=== PATIENT | female | born 1955 | race Caucasian/White ===

== ENCOUNTER 2017-02-28 06:58 | Inpatient (IN) | payer MEDICAID, OTHER ==
[~2017-02-28] VITALS: Ht 154.9 cm; Wt 121.6 kg
[~2017-02-28 06:58] MED LIST: AMIO200T2 PO; ASPI-664 PO; CLON-379 PO; LOSA50TA6 PO; METF500T4 PO
[2017-02-28] MEDS ORDERED: SOD CHLORIDE 0.9% 1,000 ML IV STA (07:18)
[2017-02-28] MEDS ORDERED: LIDOCAINE/MYLANTA 40 ML BTL PO ONE (07:30)
[2017-02-28 07:41] VITALS: TEMP 98.3
--- NOTE | 2017-02-28 07:44 | ERD ---
ER Documentation Chief Complaint Date/Time DATE: 02/28/17 TIME: 07:40 Chief Complaint ABD PAIN RADIAITNG TO BACK, ONSET LAST NIGHT, NO N/V/D HPI This 69-year-old female comes in with her for upper abdominal pain described as a burning and sharp pain radiates to her back and began last night. She denies vomiting diarrhea but does state that she had some constipation from time to time. Her last bowel moment was 2 days ago. States that she has been taking Zantac which does relieve the pain. She has had this pain before as well. She does not have any chest pain or shortness of breath. ROS All systems reviewed and are negative except as per history of present illness. Medications Home Meds Active Scripts Clonidine Hcl* (Clonidine Hcl*) 0.1 Mg Tab, 0.2 MG PO BID, #20 Prov:CRISTOPHER DSOUZA MD 10/11/15 Reported Medications Losartan Potassium* (Losartan Potassium*) 50 Mg Tablet, 50 MG PO DAILY, TAB 10/11/15 Aspirin* (Aspirin* EC) 81 Mg Tablet.dr, 81 MG PO DAILY, TAB 10/11/15 Amiodarone Hcl* (Amiodarone Hcl*) 200 Mg Tablet, 200 MG PO DAILY, TAB 10/11/15 Metformin Hcl* (Metformin Hcl*) 500 Mg Tablet, 500 MG PO BID, TAB 10/11/15 Allergies Allergies: Coded Allergies: No Known Allergy (Verified , 05/27/12) PMhx/Soc History of Surgery: No Anesthesia Reaction: No Hx Neurological Disorder: No Hx Respiratory Disorders: No Hx Cardiac Disorders: Yes (htn) Hx Psychiatric Problems: No Hx Miscellaneous Medical Probl: Yes (DM) Hx Alcohol Use: No Hx Substance Use: No Hx Tobacco Use: No Physical Exam Vitals Vital Signs Date Time Temp Pulse Resp B/P Pulse Ox O2 Delivery O2 Flow Rate FiO2 02/28/17 07:41 98.3 71 25 161/76 100 Room Air 02/28/17 07:02 98.0 71 18 212/83 98 Physical Exam Const: [] No distress Head: Atraumatic Eyes: Normal Conjunctiva ENT: Normal External Ears, Nose and Mouth. Neck: Full range of motion..~ No meningismus. Resp: Clear to auscultation bilaterally Cardio: Regular rate and rhythm, no murmurs Abd: Soft, mild to moderate epigastric tenderness without guarding or rebound , non distended. Normal bowel sounds Skin: No petechiae or rashes Back: No midline or flank tenderness Ext: No cyanosis, or edema Neur: Awake and alert and oriented 3, no focal deficits Psych: Normal Mood and Affect Result Diagram: 02/28/17 0730 02/28/17 0730 Results 24 hrs Laboratory Tests Test 02/28/17 07:30 02/28/17 11:46 02/28/17 12:17 White Blood Count 7.810^3/ul Red Blood Count 4.7010^6/ul Hemoglobin 13.0g/dl Hematocrit 41.5% Mean Corpuscular Volume 88.3fl Mean Corpuscular Hemoglobin 27.7pg Mean Corpuscular Hemoglobin Concent 31.3g/dl Red Cell Distribution Width 14.4% Platelet Count 17142^3/UL Mean Platelet Volume fl Neutrophils % 65.0% Band Neutrophils % 2.0% Lymphocytes % 21.0% Monocytes % 9.0% Metamyelocytes % 2.0% Myelocytes % 1.0% Neutrophils # 5.110^3/ul Lymphocytes # 1.610^3/ul Monocytes # 0.710^3/ul Metamyelocytes # 0.2 Myelocytes # 0.1 Differential Comment MANUAL DIFF Giant Platelets FEW Urine Color YELLOW Urine Clarity CLEAR Urine pH 5.5 Urine Specific [place]cano 1.020 Urine Ketones NEGATIVE Urine Nitrite NEGATIVE Urine Bilirubin 1+ Urine Ictotest NEGATIVE Urine Urobilinogen 0.2 E.U./dL Urine Leukocyte Esterase NEGATIVE Urine Hemoglobin NEGATIVE Urine Glucose NEGATIVE% Urine Total Protein NEGATIVE Sodium Level 141mmol/L Potassium Level 4.2mmol/L Chloride Level 102mmol/L Carbon Dioxide Level 24mmol/L Anion Gap 19 Blood Urea Nitrogen 13mg/dl Creatinine 0.83mg/dl Glucose Level 231mg/dl Calcium Level 9.1mg/dl Total Bilirubin 2.3mg/dl Direct Bilirubin 1.50mg/dl Indirect Bilirubin 0.8mg/dl Aspartate Amino Transf (AST/SGOT) 239IU/L Alanine Aminotransferase (ALT/SGPT) 444IU/L Alkaline Phosphatase 199IU/L Total Protein 7.5g/dl Albumin 3.8g/dl Globulin 3.70g/dl Albumin/Globulin Ratio 1.02 Lipase 170U/L Prothrombin Time 13.4Sec Prothrombin Time Ratio 1.0 INR International Normalized Ratio 1.02 Activated Partial Thromboplast Time 23.8Sec Bedside Glucose 178mg/dL Current Medications Medications (Trade) Dose Ordered Sig/Martha Route PRN Reason Start Time Stop Time Status Last Admin Dose Admin Sodium Chloride (NS) 1,000 ml @ 1,000 mls/hr Q1H STAT IV 02/28/17 07:18 02/28/17 08:17 DC 02/28/17 07:51 Miscellaneous Medication (Gi Cocktail (2)) 40 ml ONCE ONCE PO 02/28/17 07:30 02/28/17 07:31 DC 02/28/17 07:51 Morphine Sulfate (morphine) 4 mg ONCE STAT IV 02/28/17 08:16 02/28/17 08:17 DC 02/28/17 08:22 Ondansetron HCl (Zofran Inj) 4 mg ONCE STAT IV 02/28/17 08:24 02/28/17 08:25 DC 02/28/17 08:27 Morphine Sulfate 4 mg 4 mg ONCE STAT IV 02/28/17 09:17 02/28/17 09:19 DC 02/28/17 09:29 Ceftriaxone Sodium 50 ml @ 100 mls/hr ONCE ONCE IVPB 02/28/17 11:00 02/28/17 11:29 DC 02/28/17 11:23 Metronidazole (Flagyl 500 Mg (Pmx)) 100 ml @ 100 mls/hr ONCE ONCE IVPB 02/28/17 11:00 02/28/17 11:59 DC 02/28/17 11:23 Ondansetron HCl (Zofran Inj) 4 mg BRIDGE ORDER PRN IV NAUSEA AND/OR VOMITING 02/28/17 11:30 02/28/17 12:19 DC Acetaminophen 650 mg 650 mg ER BRIDGE PRN PO MILD PAIN/FEVER 02/28/17 11:30 03/01/17 11:29 Sodium Chloride (NS) 1,000 ml @ 100 mls/hr Q10H IV 02/28/17 11:45 IV Flush (NS 3 ml) 3 ml PER PROTOCOL IV 02/28/17 12:00 Ondansetron HCl (Zofran Inj) 4 mg Q6H PRN IV NAUSEA AND/OR VOMITING 02/28/17 12:00 Morphine Sulfate (morphine) 2 mg Q4H PRN IV SEVERE PAIN LEVEL 7-10 02/28/17 12:00 Magnesium Hydroxide (Milk Of Mag) 30 ml DAILY PRN PO CONSTIPATION 02/28/17 12:00 Bisacodyl (Dulcolax) 5 mg DAILY PRN PO CONSTIPATION 02/28/17 12:00 Famotidine (Pepcid Iv) 20 mg Q12 IV 02/28/17 21:00 Hydralazine HCl 10 mg 10 mg Q6H PRN IV SBP>160 02/28/17 12:00 Piperacillin Sod/ Tazobactam Sod (Zosyn 3.375gm/ 100 ml (Pmx)) 100 ml @ 200 mls/hr Q8 IVPB 02/28/17 14:00 Insulin Aspart (Novolog Insulin Pen) NOVOLOG *MILD* ALGORITHM Q4H SC 02/28/17 12:00 Insulin Glargine (Lantus) 12 unit DAILY@20 SC 02/28/17 20:00 Miscellaneous Information (* Miscellaneous Pharmacy Order) HYPOGLYCEMIA PROTOCOL w... ONCE ONCE XX 02/28/17 12:00 02/28/17 12:21 DC Miscellaneous Information (* Miscellaneous Pharmacy Order) Discontinue Glyburide, Glipizide,... ONCE ONCE XX 02/28/17 12:00 02/28/17 12:21 DC Miscellaneous Information (* Miscellaneous Pharmacy Order) Discontinue all previ... ONCE ONCE XX 02/28/17 12:00 02/28/17 12:21 DC Amiodarone HCl (Cordarone) 200 mg DAILY PO 03/01/17 09:00 Aspirin (Halfprin) 81 mg DAILY PO 03/01/17 09:00 Losartan Potassium (Cozaar) 50 mg DAILY PO 03/01/17 09:00 Miscellaneous Information 1 ea NOTE XX 02/28/17 12:30 Glucose (Glutose) 15 gm Q15M PRN PO DECREASED GLUCOSE 02/28/17 12:30 Glucose (Glutose) 22.5 gm Q15M PRN PO DECREASED GLUCOSE 02/28/17 12:30 Dextrose (D50w Syringe) 25 ml Q15M PRN IV DECREASED GLUCOSE 02/28/17 12:30 Dextrose (D50w Syringe) 50 ml Q15M PRN IV DECREASED GLUCOSE 02/28/17 12:30 Glucagon (Glucagen) 1 mg Q15M PRN IM DECREASED GLUCOSE 02/28/17 12:30 Glucose (Glutose) 15 gm Q15M PRN BUCCAL DECREASED GLUCOSE 02/28/17 12:30 Procedures/MDM Acute cholecystitis with elevated bilirubin and liver function tests. Patient was given multiple doses of morphine to help control her pain. Also was given Zofran when she developed nausea. Was feeling much better but still did have some mild pain with increased pain on deep respirations. She was hydrated with normal saline. I did speak to the surgeon communication technician, Dr. Guan, who came and saw the patient emergency room and recommended MRCP. I also spoke with Dr. Dc who will be admitting the patient to the medical surgical floor for further workup and evaluation. I gave the patient Rocephin and Flagyl. Patient's vital signs are stable and she is currently more comfortable. CT abdomen and pelvis interpretation: Multiple gallstones, no obstruction, no free air, no bony abnormalities. Biliary ultrasound interpretation: Gallstones with: Bile duct of 7.1 mm, no gallbladder wall thickening, contracted gallbladder. EKG interpretation: Normal sinus rhythm rate of 61, normal axis, no ST-T wave changes concerning for acute ischemia, QT of 487 Chest x-ray interpretation: No acute process, I see no widened mediastinum, no pneumothorax, no pulmonary edema, no fractures Departure Diagnosis: Primary Impression: Acute cholecystitis Additional Impressions: Transaminitis Hyperglycemia due to type 2 diabetes mellitus GREGOR VERDE DO Feb 28, 2017 07:44
[2017-02-28] MEDS ORDERED: morphine 4 MG/ML VIAL IV STA ×2 (08:16→09:17)
--- NOTE | 2017-02-28 08:16 | RADRPT ---
PROCEDURE: CT Abdomen and pelvis without contrast. CLINICAL INDICATION: Abdominal pain. TECHNIQUE: CT scan of the abdomen and pelvis was performed on a multi-detector high-resolution CT scanner. Contiguous axial images were obtained from the lung bases to the ischial tuberosities wit hout intravenous contrast. Coronal and sagittal reformatted images were also obtained. Images were reviewed on the PACS workstation. One or more of the following dose reduction techniques were used: - Automated exposure control. - Adjustment of the mA and/or kV according to patient size. - Use of iterative reconstruction technique. Exam CTD/vol = 23.70 mGy. Total exam DLP = 1355.04 mGy-cm. COMPARISON: None. FINDINGS: Evaluation of the lung bases demonstrates no pleural or parenchymal disease. Abdomen: The liver is normal in size. There is no focal mass or dilatation of the biliary tree. T he gallbladder is not distended. Multiple gallstones are identified. The spleen, pancreas and bilate ral adrenal glands are within normal limits. Bilateral kidneys are normal in size with no contour d eforming mass identified. There is no radiopaque renal or ureteral calculus identified. There is n o hydronephrosis or hydroureter. There is no retroperitoneal adenopathy. The abdominal aorta is of normal caliber with scattered atherosclerotic calcifications. There is a moderate-sized periumbilical hernia containing fat and focal loop of small bowel. There is no bowel obstruction or free air. A normal appendix is identified. There are scattered colonic diverticuli without evidence of diverticulitis. There is no ascites. Pelvis: The bladder is unremarkable. The uterus and adnexa are within normal limits. There is no significant pelvic adenopathy or free fluid. Evaluation of the osseous structures demonstrates no suspicious lytic or blastic lesion. IMPRESSION: Moderate periumbilical hernia containing fat and focal loop of small bowel. There is no bowel obstr uction. Scattered colonic diverticuli without evidence of diverticulitis. Cholelithiasis. Vascular calcifications reflective of atherosclerosis. .Ryan Boucher MD, MD Date Time Electronically viewed and signed by .Ryan Boucher MD, MD on 02/28/2017 08:16 .T/
[2017-02-28 08:23] LABS: ADD SCAN DIFF NO
[2017-02-28] MEDS ORDERED: ONDANSETRON 4 MG INJ IV STA (08:24)
[2017-02-28 08:35] LABS: ABNORMAL IP MESSAGE 1; HEMATOCRIT 41.5 % (37.0-47.0); MEAN CORPUSCULAR HEMOGLOBIN 27.7 pg (29.0-33.0); MEAN CORPUSCULAR HGB CONC 31.3 g/dl (32.0-37.0); MEAN CORPUSCULAR VOLUME 88.3 fl (82.0-101.0); PLATELET COUNT 117 10^3/UL (140-415); RED CELL DISTRIBUTION WIDTH 14.4 % (11.5-14.5); WHITE BLOOD COUNT 7.8 10^3/ul (4.8-10.8)
[2017-02-28 08:36] LABS: ADD UMIC NO; URINE BILIRUBIN (Dip) 1+ (NEGATIVE); URINE BLOOD (Dip) NEGATIVE (NEGATIVE); URINE COLOR YELLOW (YELLOW); URINE GLUCOSE (Dip) NEGATIVE (NEGATIVE); URINE KETONES (Dip) NEGATIVE (NEGATIVE); URINE LEUKOCYTE ESTERASE (Dip) NEGATIVE (NEGATIVE); URINE NITRITE (Dip) NEGATIVE (NEGATIVE); URINE TOTAL PROTEIN (Dip) NEGATIVE (NEGATIVE); URINE UROBILINOGEN (Dip) 0.2 E.U./dL (0.1-1.0)
[2017-02-28 08:42] LABS: ALBUMIN 3.8 g/dl (3.3-4.9)
[2017-02-28 08:43] LABS: POTASSIUM 4.2 mmol/L (3.5-5.1)
[2017-02-28 08:45] LABS: ALBUMIN/GLOBULIN RATIO 1.02; BILIRUBIN,DIRECT 1.5 mg/dl (0.00-0.20); BILIRUBIN,INDIRECT 0.8 mg/dl (0-1.1); BILIRUBIN,TOTAL 2.3 mg/dl (0.2-1.3); CREATININE 0.83 mg/dl (0.44-1.00); TOTAL PROTEIN 7.5 g/dl (6.1-8.1)
[2017-02-28 08:46] LABS: CALCIUM 9.1 mg/dl (8.4-10.2)
[2017-02-28 08:51] LABS: ICTOTEST NEGATIVE (NEGATIVE)
--- NOTE | 2017-02-28 10:23 | RADRPT ---
PROCEDURE: Right upper quadrant abdominal ultrasound. CLINICAL INDICATION: Abdominal pain TECHNIQUE: Lind scale and color doppler ultrasound images of the right upper quadrant. COMPARISON: CT abdomen pelvis 02/28/2017 FINDINGS: Pancreas: Visualized portions appear of normal echogenicity, no focal lesions. Liver: Morphology: No evidence of contour nodularity. Measures 18.2 cm in length. Echogenicity: Increased echogenicity of the liver parenchyma suggestive of hepatic steatosis. Focal lesions: None. Main portal vein: Patent with hepatopetal flow. Biliary System: Gallbladder wall thickness is upper limits of normal measuring 3 mm which appears to be due to contr acture. Numerous gallstones are seen layering within the gallbladder. No intrahepatic biliary dilatation. Common bile duct measures 7.1 mm in maximal dimension. Kidneys: Right 11.0 cm in length. Right renal cortical thickness is preserved. Normal echogenicity. No hydronephrosis. No renal calculi. No focal lesions. No free fluid identified. IMPRESSION: Numerous gallstones are present layering within the gallbladder. Gallbladder appears mildly contracted accounting for mild gallbladder wall thickening. Normal caliber intrahepatic and hepatic biliary system. If clinical concern for cholecystitis HIDA scan may be useful for further evaluation. Mildly enlarged echogenic liver suggestive of hepatic steatosis. RPTAT: AADD .Manuel Jacobs MD, MD Date Time Electronically viewed and signed by .Manuel Jcaobs MD, on 02/28/2017 10:23 .B/
[2017-02-28] MEDS ORDERED: CEFTRIAXONE 1 GM/50 ML (PMX) 50 ML IVPB ONE (11:00)
[2017-02-28] MEDS ORDERED: metroNIDAZOLE 500 MG/NS (PMX) 100 ML IVPB ONE (11:00)
--- NOTE | 2017-02-28 11:13 | RADRPT ---
PROCEDURE: XR Chest. CLINICAL INDICATION: Chest pain TECHNIQUE: Single frontal view of the chest was obtained COMPARISON: 10/11/15 FINDINGS: The heart is enlarged. The thoracic aorta is calcified. The lungs are clear. There is no pleural effusion or pneumothorax. RPTAT: AA IMPRESSION: Mild cardiomegaly. Calcified aorta consistent with atherosclerotic disease. .Joni Whyte MD, MD Date Time Electronically viewed and signed by .Joni Whyte MD, on 02/28/2017 11:13 .S/
[2017-02-28] MEDS ORDERED: ACETAMINOPHEN 325 MG TAB PO PRN (11:30)
[2017-02-28] MEDS ORDERED: ONDANSETRON 4 MG INJ IV PRN (11:30)
[2017-02-28 11:48] LABS: BURR CELLS OCCASIONAL; LYMPHOCYTES # 1.6 10^3/ul (0.8-2.9); MONOCYTE # 0.7 10^3/ul (0.3-0.9); MYELOCYTES # 0.1; NEUTROPHIL # 5.1 10^3/ul (1.6-7.5)
[2017-02-28] MEDS ORDERED: BISACODYL (EC) 5 MG TAB PO PRN (12:00)
[2017-02-28] MEDS ORDERED: hydrALAzine 20 MG INJ IV PRN (12:00)
[2017-02-28] MEDS ORDERED: NACL 0.9% 3 ML SYG IV SCH (12:00)
[2017-02-28] MEDS ORDERED: MAGNESIUM HYDROXIDE 30ML CUP PO PRN (12:00)
[2017-02-28] MEDS: INSULIN ASPART [NOVOLOG] 3 ML PEN SC SCH ×4 (12:00→23:50)
[2017-02-28 12:10] LABS: INR 1.02; PROTIME 13.4 Sec (12.2-14.2)
[2017-02-28 12:15] LABS: PARTIAL THROMBOPLASTIN TIME 23.8 Sec (25.0-35.0)
[2017-02-28] MEDS ORDERED: GLUCAGON 1 MG INJ IM PRN (12:30)
[2017-02-28] MEDS ORDERED: DEXTROSE 50% 50 ML SYRINGE IV PRN ×2 (12:30)
[2017-02-28] MEDS ORDERED: GLUCOSE GEL 15 GRAM TUBE PO PRN ×2 (12:30)
[2017-02-28] MEDS ORDERED: GLUCOSE GEL 15 GRAM TUBE BUCCAL PRN (12:30)
[2017-02-28] MEDS: SOD CHLORIDE 0.9% 1,000 ML IV SCH ×2 (12:45→23:24)
[2017-02-28 13:00] VITALS: BP 125/82; PULSE 62; RESP 16
[2017-02-28] MEDS: PIPER-TAZO 3.375 GM IV (PMX) 100 ML IVPB SCH ×2 (14:11→22:16)
[2017-02-28 14:15] VITALS: BP 186/91; RESP 19
--- NOTE | 2017-02-28 15:12 | HP ---
DATE OF ADMISSION: 02/28/2017 REASON FOR CONSULTATION: Acute cholecystitis and abnormal LFTs. HISTORY OF PRESENT ILLNESS: The patient is a morbidly obese 61-year-old Arabic-speaking female who presents with a 1 day history of severe midepigastric and right upper quadrant abdominal pain. She has no known familial history of gallbladder disease. Today in the emergency room, she was noted t o have multiple gallstones seen on ultrasound with borderline thickened gallbladder wall, as well as abnormalities in her liver function with a bilirubin of 2.5 and AST in the 400s. She is admitted a nd surgical consultation is requested in that regard. She has had no fevers, chills or jaundice. PAST MEDICAL HISTORY: No previous abdominal surgeries. REVIEW OF SYSTEMS: HEAD, EARS, EYES, NOSE AND THROAT: Unremarkable. PULMONARY: No history of pneumonia or shortness of breath. CARDIAC: The patient has a history of hypertension but no chest pain, UT or arrhythmia. The patien t is a diabetic. ABDOMEN: As in the HPI. EXTREMITIES: Unremarkable. OUTPATIENT MEDICATIONS 1. Metformin. 2. Amiodarone. 3. Aspirin. 4. Clonidine 5. Losartan. ALLERGIES: NONE. PHYSICAL EXAMINATION: GENERAL: The patient is a morbidly obese 61-year-old female who is awake and alert, in no acute dis tress. HEAD, EARS, EYES, NOSE, THROAT: Within normal limits. Sclerae are anicteric. LUNGS: Clear. HEART: Regular rhythm. ABDOMEN: Tender in the epigastrium without guarding or rebound. EXTREMITIES: Unremarkable. LABORATORY DATA: The patient's hematocrit is 41 with a white count of 7800. Bilirubin is 2.3, AST is 239, ALT is 444, alkaline phosphatase is 199. IMPRESSION: This patient has cholecystitis as well as possible choledocholithiasis. Her amylase is normal. PLAN: We will obtain MRCP. The patient will need laparoscopic cholecystectomy if she does not have choledocholithiasis. Dictated By: STUART DUMONT/SHRUTI Conf#: [id number] DID#: [id number]
--- NOTE | 2017-02-28 15:16 | HP ---
DATE OF ADMISSION: 02/28/2017 TIME OF EVALUATION: 1300 REASON FOR ADMISSION: Abdominal pain. CONSULTATIONS: Dr. Klaus Guan, General Surgery. HISTORY OF PRESENT ILLNESS: This is a 61-year-old female with past medical history of essential hypertension, type 2 diabetes mellitus and morbid obesity, who came to the emergency room with chief complaint of abdominal pain that started since last night. The patient verbalized the pain as epigastric and burning with radiation to her back. The patient denied any vomiting or diarrhea. However, the patient verbalized that her last bowel movement was 2 days ago. The patient verbalized that she tried using [id number] Zantac with no improvement in pain. The patient denied any chest pain, dyspnea, fevers , chills, dysuria, hematuria, melena or hematochezia. The patient denied eating anything unusual. In the emergency room, the patient's workup showed minimal thrombocytopenia along with hyperbilirubinemia and transaminitis. The patient underwent a gallbladder ultrasound that showed numerous gallstones with mild gallbladder wall thickening. The patient underwent a CT scan of the abdomen and pelvis that showed cholelithiasis, moderate periumbilical hernia containing fat and focal loop of small bowel with no evidence of bowel obstruction. The CT also revealed scattered colonic diverticula without evidence of diverticulitis. The patient's chest x-ray revealed mild cardiomegaly and calcified aorta consistent with atherosclerotic disease. In the emergency room, the patient was treated with IV analgesics and IV antibiotics along with antiemetics. PAST MEDICAL HISTORY: Essential hypertension, type 2 diabetes mellitus, obesity , cardiac arrhythmias. (The patient takes amiodarone. The patient was unsure why she takes it. As per the patient, she has some kind of irregular heartbeat and the amiodarone was prescribed by a physician in [place].) PAST SURGICAL HISTORY: Tubal ligation. HOME MEDICATIONS: 1. Clonidine 0.2 mg p.o. b.i.d. 2. Losartan 50 mg p.o. daily. 3. Aspirin 81 mg p.o. daily. 4. Amiodarone 200 mg p.o. daily. 5. Metformin 500 mg p.o. b.i.d. ALLERGIES: NO KNOWN DRUG ALLERGIES. SOCIAL HISTORY: The patient lives at home with her spouse. Denies any history of tobacco, alcohol or illicit drugs. REVIEW OF SYSTEMS: A 12-point review of systems were made and the review of systems were negative other than what is mentioned in the history of present illness. PHYSICAL EXAMINATION: VITAL SIGNS: Temperature 98.3, pulse rate 61, respiratory rate 18, blood pressure 144/61, oxygen saturation 99% on room air. GENERAL: This is a morbidly obese female lying in bed in no apparent distress. HEENT: Head normocephalic and atraumatic. Eyes: Anicteric sclerae. Conjunctivae clear. ENT: Nasal septum is midline. Oral mucosa is dry. NECK: Obese, and increased neck circumference. Unable to visualize any neck veins. CARDIAC: Regular rate and rhythm. S1, S2 heard. RESPIRATORY: Bilaterally clear to auscultation. Diminished breath sounds bilaterally. ABDOMEN: Obese. There is minimal epigastric symptoms. Umbilical hernia that is reducible. EXTREMITIES: No cyanosis, no clubbing, no edema. Peripheral pulses are palpable. NEUROLOGIC: The patient is awake, alert and oriented. Cranial nerves II through XII are grossly intact. No focal deficits. SKIN: Normal skin turgor. No rashes. LABORATORY AND DIAGNOSTIC DATA: WBC 7.8, hemoglobin 13.0, hematocrit 41.5, platelet count 117. Sodium 141, potassium 4.0, chloride 102, carbon dioxide 24 , anion gap 19, BUN 13, creatinine 0.83, glucose 231, calcium 9.1, total bilirubin 2.3, direct bilirubin 1.5, indirect bilirubin 0.8, AST 239, ALT 444, alkaline phosphatase 199, total protein 75, albumin 3.8, lipase 170. PT 13.4, INR 1.028, PTT 23.8. Urinalysis: Urine nitrite negative, urine leukocyte esterase negative. Urine glucose negative. Gallbladder ultrasound: Numerous gallstones are present, layering within the gallbladder. Gallbladder appears mildly contracted accounting for mild gallbladder wall thickening. Normal caliber intrahepatic and hepatic biliary system. Mildly enlarged echogenic liver suggestive of hepatic steatosis. CT scan of the abdomen and pelvis: Moderate periumbilical hernia containing fat and focal loop of small bowel. There is no bowel obstruction. Scattered chronic diverticula without evidence of diverticulitis. Cholelithiasis. Vascular calcifications reflective of atherosclerosis. Chest x-ray: Mild cardiomegaly. Calcified aorta consistent with atherosclerotic disease. IMPRESSION: This is a 61-year-old female with past medical history of essential hypertension, type 2 diabetes mellitus, and obesity, who came to the emergency room with chief complaint of abdominal pain, who was found to have evidence of cholelithiasis with underlying transaminitis and hyperbilirubinemia , who will be admitted here for further treatment and evaluation. ASSESSMENT AND PLAN: 1. Abdominal pain. Most probably secondary to cholelithiasis. The gallbladder ultrasound did not show any evidence of intrahepatic biliary ductal dilatation. MRCP has been ordered by the ER physician to evaluate for any choledocholithiasis. The patient will be started on empiric antibiotics to avoid any cholangitis. General surgery consult has been called by the ER physician. The patient will be provided with adequate pain control. The patient will be kept n.p.o. 2. Transaminitis with hyperbilirubinemia, most probably secondary to #1. We will avoid hepatotoxic medications. We will trend LFTs. Hepatitis panel will be ordered. 3. Essential hypertension. The patient will be resumed on her home antihypertensives. The patient will also be started on p.r.n. antihypertensives for any systolic blood pressure readings greater than 160 mmHg. 4. Type 2 diabetes mellitus. The patient's metformin will be put on hold. The patient will be started on sliding scale insulin along with Lantus insulin. Hemoglobin A1c will be obtained to evaluate the blood glucose control over the past few months. 5. Thrombocytopenia. Platelet count 117. We will monitor the patient for any bleeding. If the patient has worsening thrombocytopenia, we will stop the patient's antiplatelet medication. 6. Reported history of cardiac arrhythmia. The patient will be continued on amiodarone. A 12-lead EKG will be obtained to evaluate the baseline cardiac rhythm. Plan. The patient will be admitted to the inpatient setting. The patient will be kept n.p.o., except for medications. The patient will be started on DVT prophylaxis and gastrointestinal prophylaxis. The patient will remain a full code. Activities will be as tolerated. The rest of the patient's management will be based on the clinical course, the results of the diagnostic studies, and inputs from consultants. Based on the patient's clinical presentation, she most probably requires at least 2 midnights' stay for further management and evaluation of her clinical presentation. The case and management of this patient was fully discussed with Dr. Cardenas. NIELS CARDENAS MD, AM/SHRUTI Conf#: [id number] [facility]#: [id number] MTDD
[2017-02-28 15:30] VITALS: Ht 154.9 cm; Wt 121.6 kg
--- NOTE | 2017-02-28 18:45 | RADRPT ---
PROCEDURE: MRCP. CLINICAL INDICATION: Right upper quadrant pain. TECHNIQUE: Axial single shot fast-spin echo, axial and coronal fat-saturated FIESTA, single-shot [facility] [employer] using both thick and thin-slab collimation, and 3D MRCP were performed. COMPARISON: CT, 02/28/2017. FINDINGS: Gallbladder demonstrates numerous gallstones without gallbladder wall thickening or inflammation.. There is layering filling defect identified in the distal common bile duct. There is mild central i ntrahepatic bile duct dilatation without significant dilatation of the extrahepatic biliary system. Pancreatic duct, as visualized, is equally unremarkable. IMPRESSION: Cholelithiasis without gallbladder wall thickening/inflammation. Small layering filling defect identified in the distal common bile duct, suggesting sludge and/or ti ny stones. Consider ERCP. RPTAT: HEKC .Mihai Ireland MD, Date Time Electronically viewed and signed by .Mihai Ireland MD, on 02/28/2017 18:45 .C/
[2017-02-28 20:00] VITALS: BP 133/80; PULSE 70; RESP 18
[2017-02-28] MEDS: INSULIN GLARGINE [LANtus] 3 ML PEN SC SCH ×2 (20:48→20:58)
[2017-02-28] MEDS: FAMOTIDINE 20 MG INJ IV SCH (20:50)
[2017-02-28] MEDS ORDERED: DIPHENHYDRAMINE 50 MG CAP PO PRN (23:30)
[2017-02-28] MEDS ORDERED: DIPHENHYDRAMINE 50 MG INJ IV ONE (23:30)
[2017-02-28] MEDS ORDERED: DIPHENHYDRAMINE 25 MG CAP PO PRN (23:30)
[2017-03-01] MEDS: INSULIN GLARGINE [LANtus] 3 ML PEN SC SCH ×2 (00:18→20:05)
[2017-03-01] MEDS: INSULIN ASPART [NOVOLOG] 3 ML PEN SC SCH ×5 (04:00→20:00)
[2017-03-01] MEDS: PIPER-TAZO 3.375 GM IV (PMX) 100 ML IVPB SCH ×3 (05:18→22:11)
[2017-03-01 05:24] LABS: ADD SCAN DIFF NO
[2017-03-01 05:26] LABS: HAAIG REFLEX REFLEX FILED
[2017-03-01 05:30] LABS: BASOPHIL # 0.1 10^3/ul (0.0-0.1); BASOPHILS % 1.2 % (0.0-2.0); EOSINOPHILS # 0.2 10^3/ul (0.0-0.5); EOSINOPHILS % 4.2 % (0.0-7.0); HEMATOCRIT 37.3 % (37.0-47.0); HEMOGLOBIN 11.6 g/dl (12.0-16.0); LYMPHOCYTES # 1.5 10^3/ul (0.8-2.9); LYMPHOCYTES % 30.5 % (15.0-51.0); MEAN CORPUSCULAR HEMOGLOBIN 27.2 pg (29.0-33.0); MEAN CORPUSCULAR HGB CONC 31.1 g/dl (32.0-37.0); MEAN CORPUSCULAR VOLUME 87.4 fl (82.0-101.0); MEAN PLATELET VOLUME 14.4 fl (7.4-10.4); MONOCYTE # 0.5 10^3/ul (0.3-0.9); NEUTROPHIL # 2.7 10^3/ul (1.6-7.5); NEUTROPHILS % 54.5 % (39.0-77.0); PLATELET COUNT 101 10^3/UL (140-415); RED BLOOD COUNT 4.27 10^6/ul (4.20-5.40); RED CELL DISTRIBUTION WIDTH 14.5 % (11.5-14.5)
[2017-03-01 05:49] LABS: CHOL/HDL RATIO 3.6 RATIO; MAGNESIUM 1.9 mg/dl (1.7-2.5)
[2017-03-01 05:51] LABS: ALBUMIN 3.2 g/dl (3.3-4.9); ALBUMIN/GLOBULIN RATIO 1.03; CALCIUM 8.4 mg/dl (8.4-10.2); CREATININE 0.71 mg/dl (0.44-1.00); TOTAL PROTEIN 6.3 g/dl (6.1-8.1)
[2017-03-01 06:00] VITALS: BP 129/86; PULSE 80; RESP 19
[2017-03-01 06:39] LABS: HEPATITIS B CORE ANTIBODY NEGATIVE (NEGATIVE)
[2017-03-01] MEDS: SOD CHLORIDE 0.9% 1,000 ML IV SCH ×2 (07:45→13:00)
[2017-03-01 07:57] VITALS: BP 179/84; RESP 16
[2017-03-01] MEDS: FAMOTIDINE 20 MG INJ IV SCH ×2 (08:07→19:49)
[2017-03-01] MEDS: LOSARTAN 50 MG TAB PO SCH (08:07)
[2017-03-01] MEDS: ASPIRIN (EC) 81 MG TAB PO SCH (08:07)
[2017-03-01] MEDS: AMIODARONE 200 MG TAB PO SCH (08:07)
[2017-03-01 10:00] VITALS: BP 153/68; PULSE 61
--- NOTE | 2017-03-01 10:17 | PN ---
Date/Time of Note Date/Time of Note DATE: 03/01/17 TIME: 10:12 Assessment/Plan VTE Prophylaxis VTE Prophylaxis Intervention: SCD's Lines/Catheters IV [facility] (from [facility] Peripheral IV Urinary Cath still in place: No Assessment/Plan Chief Complaint/Hosp Course Assessment and plan 1. Abdominal pain secondary to cholelithiasis. Additionally patient did have MRCP that did show some possible sludging antennae stones in CBD. Circus Performer consulted. Continue IV hydration and analgesics as needed. Surgeon following as well 2. Transaminitis and hyperbilirubinemia likely secondary to #1. Circus Performer to follow. We'll follow-up with recommendations 3. Essential hypertension. Continue on antihypertensives and adjust as needed. 4. Type 2 diabetes. Continue insulin regimen for now. Of note A1c noted at 7.1 5. Thrombocytopenia. No active bleeding at this time. We'll monitor 6. History of cardiac arrhythmia. Continue on amiodarone for now Disposition and plan: Circus Performer to follow for possible CBD obstruction. Follow-up with surgeon recommendations for possible left scopic cholecystectomy Discussed plan of care with Dr. Vo Problems: Subjective 24 Hr Interval Summary Free Text/Dictation Denies any abdominal pain at this time. Appears comfortable at present Exam/Review of Systems Vital Signs Vitals Vital Signs Date Time Temp Pulse Resp B/P Pulse Ox O2 Delivery O2 Flow Rate FiO2 03/01/17 07:57 98.3 62 16 179/84 97 03/01/17 06:00 Room Air Intake and Output 02/28/17 02/28/17 03/01/17 15:00 23:00 07:00 Intake Total 100 ml 400 ml 1550 ml Balance 100 ml 400 ml 1550 ml Exam General: Comfortable at present, morbidly obese Eyes: pupils equal round, Anicteric sclera Neck: Supple nontender, no JVD Cardiac: S1, S2 auscultated, regular rhythm and rate Pulmonary: No coarse rhonchi or breathing auscultated GI: Abdomen soft nontender nondistended, bowel sounds active Extremities: No edema bilateral lower extremities Skin: Clean dry and intact Neurologic: Alert to person place and time and situation Results Result Diagram: 03/01/17 0507 03/01/17 0507 Results 24 hrs Laboratory Tests Test 02/28/17 11:46 02/28/17 12:17 02/28/17 14:50 02/28/17 15:48 Prothrombin Time 13.4 Prothrombin Time Ratio 1.0 INR International Normalized Ratio 1.02 Activated Partial Thromboplast Time 23.8 L Bedside Glucose 178 131 Vitamin D 1,25-Dihydroxy 24.9 L Free Thyroxine 2.30 Test 02/28/17 20:06 02/28/17 23:46 03/01/17 04:01 03/01/17 05:07 Bedside Glucose 119 149 161 White Blood Count 5.0 # Red Blood Count 4.27 Hemoglobin 11.6 L Hematocrit 37.3 Mean Corpuscular Volume 87.4 Mean Corpuscular Hemoglobin 27.2 L Mean Corpuscular Hemoglobin Concent 31.1 L Red Cell Distribution Width 14.5 Platelet Count 101 L Mean Platelet Volume 14.4 H Neutrophils % 54.5 Lymphocytes % 30.5 Monocytes % 9.0 Eosinophils % 4.2 Basophils % 1.2 Nucleated Red Blood Cells % 0.0 Neutrophils # 2.7 Lymphocytes # 1.5 Monocytes # 0.5 Eosinophils # 0.2 Basophils # 0.1 Nucleated Red Blood Cells # 0.0 Sodium Level 139 Potassium Level 4.0 Chloride Level 109 Carbon Dioxide Level 24 Anion Gap 10 # Blood Urea Nitrogen 10 Creatinine 0.71 Glucose Level 186 Calcium Level 8.4 Phosphorus Level 4.0 Magnesium Level 1.9 Total Bilirubin 2.0 H Direct Bilirubin 1.00 #H Indirect Bilirubin 1.0 Aspartate Amino Transf (AST/SGOT) 170 H Alanine Aminotransferase (ALT/SGPT) 334 H Alkaline Phosphatase 170 H Total Protein 6.3 # Albumin 3.2 L Globulin 3.10 Albumin/Globulin Ratio 1.03 Triglycerides Level 116 Cholesterol Level 184 LDL Cholesterol, Calculated 111 HDL Cholesterol 50 Cholesterol/HDL Ratio 3.6 Hepatitis B Surface Antigen NEGATIVE Hepatitis B Core Total Antibody NEGATIVE Hepatitis C Antibody NEGATIVE Test 03/01/17 07:43 Bedside Glucose 150 Medications Medications Current Medications Sodium Chloride (NS) 1,000 ml @ 100 mls/hr Q10H IV Last administered on t 23:24; Admin Dose 100 MLS/HR; Start 02/28/17 at 11:45 Ondansetron HCl (Zofran Inj) 4 mg Q6H PRN IV NAUSEA AND/OR VOMITING; Start 02/28 at 12:00 Morphine Sulfate (morphine) 2 mg Q4H PRN IV SEVERE PAIN LEVEL 7-10; Start at 12:00 Magnesium Hydroxide (Milk Of Mag) 30 ml DAILY PRN PO CONSTIPATION; Start at 12:00 Bisacodyl (Dulcolax) 5 mg DAILY PRN PO CONSTIPATION; Start 02/28/17 at 12:00 Famotidine (Pepcid Iv) 20 mg Q12 IV Last administered on 03/01/17 08:07; Admin Dose 20 MG; Start 02/28/17 at 21:00 Hydralazine HCl 10 mg 10 mg Q6H PRN IV SBP>160; Start 02/28/17 at 12:00 Piperacillin Sod/ Tazobactam Sod (Zosyn 3.375gm/ 100 ml (Pmx)) 100 ml @ 200 mls /hr Q8 IVPB Last administered on 03/01/17 05:18; Admin Dose 200 MLS/HR; Start 02/28/17 at 14:00 Insulin Aspart (Novolog Insulin Pen) NOVOLOG *MILD* ALGORITHM Q4H SC Last administered on 03/01/17 08:09; Admin Dose 1 UNIT; Start 02/28/17 at 12:00 Insulin Glargine (Lantus) 12 unit DAILY@20 SC ; Start 02/28/17 at 20:00 Amiodarone HCl (Cordarone) 200 mg DAILY PO Last administered on 03/01/17 08:07 ; Admin Dose 200 MG; Start 03/01/17 at 09:00 Aspirin (Halfprin) 81 mg DAILY PO Last administered on 03/01/17 08:07; Admin Dose 81 MG; Start 03/01/17 at 09:00 Losartan Potassium (Cozaar) 50 mg DAILY PO Last administered on 03/01/17 08:07 ; Admin Dose 50 MG; Start 03/01/17 at 09:00 Miscellaneous Information 1 ea NOTE XX ; Start 02/28/17 at 12:30 Glucose (Glutose) 15 gm Q15M PRN PO DECREASED GLUCOSE; Start 02/28/17 at 12:30 Glucose (Glutose) 22.5 gm Q15M PRN PO DECREASED GLUCOSE; Start 02/28/17 at 12:30 Dextrose (D50w Syringe) 25 ml Q15M PRN IV DECREASED GLUCOSE; Start 02/28/17 at 12:30 Dextrose (D50w Syringe) 50 ml Q15M PRN IV DECREASED GLUCOSE; Start 02/28/17 at 12:30 Glucagon (Glucagen) 1 mg Q15M PRN IM DECREASED GLUCOSE; Start 02/28/17 at 12:30 Glucose (Glutose) 15 gm Q15M PRN BUCCAL DECREASED GLUCOSE; Start 02/28/17 at 12: 30 Diphenhydramine HCl (Benadryl) 25 mg Q4 PRN PO ITCHING; Start 02/28/17 at 23:30 Diphenhydramine HCl (Benadryl) 50 mg HS PRN PO ITCHING; Start 02/28/17 at 23:30 TARA ECHEVERRIA Mar 01, 2017 10:17
--- NOTE | 2017-03-01 12:25 | PN ---
DATE: 03/01/2017 SUBJECTIVE: The patient is symptomatically improved. MRCP suggests stone in the distal common bile duct. PHYSICAL EXAMINATION: Abdominal examination shows tenderness in the epigastrium has resolved. LABORATORY DATA: Bilirubin is slightly improved at 2.0 with continued elevation of AST, ALT and alk mary alice phosphatase. PLAN: Awaiting GI consultation and consideration of ERCP. We will perform completion cholecystecto my once the patient's common duct is cleared. I will follow with you. Dictated By: STUART DUMONT/SHRUTI Conf#: [id number] DID#: [id number]
--- NOTE | 2017-03-01 13:56 | CONS ---
Date/Time of Note Date/Time of Note DATE: 03/01/17 TIME: 13:26 Assessment/Plan Assessment/Plan Additional Assessment/Plan Asseement * Abdominal pain * Cholelithiasis * 02/28/2017 MRCP Cholelithiasis without gallbladder wall thickening/inflammation. Small layering filling defect identified in the distal common bile duct, suggesting sludge and/or tiny stones. Consider ERCP 02/28/2017 CT Abdomen/Pelvis. Moderate periumbilical hernia containing fat and focal loop of small bowel. There is no bowel obstruction. Scattered colonic diverticuli without evidence of diverticulitis. Cholelithiasis. Vascular calcifications reflective of atherosclerosis. Transaminitis secondary to choledocholithiasis Morbid obesity Hypertension Diabetes mellitus Plan ERCP tomorrow risk and benefits explained to the patient ,agreed with the procedure continue present medication Consultation Date/Type/Reason Admit Date/Time Feb 28, 2017 at 11:30 Type of Consultation: Gastroenterology Reason for Consultation distal cbd stone by mrcp Referring Provider: TARA ECHEVERRIA of Present Illness 61 y.o female with past medical history of hypertension,history of cardiac arrhythmia,diabetes mellitus,obesity who presented in the er because of epigastric pain with nausea no vomiting of 1 day prior to consult.Pain was described as sharp radiating to the back . CT abdomen revealed.Moderate periumbilical hernia containing fat and focal loop of small bowel. There is no bowel obstruction. Scattered colonic diverticuli without evidence of diverticulitis.Cholelithiasis.Vascular calcifications reflective of atherosclerosis..,.Laboratory examination revealed WBC 7.8.hemoglobin 13 ,hematocrit of 13.8 ,Total bilirubin 2.3,direct bilirubin 1.5,AST 239,ALT 444,Alkaline phosphatase 199. Patient was subsequently admitted and MRCP 02/28/2017 results showed Cholelithiasis without gallbladder wall thickening/inflammation.Small layering filling defect identified in the distal common bile duct, suggesting sludge and/ or tiny stones. Consider ERCP. Presently ,patient denies any abdominal pain,no nausea,no vomiting afebrile.I have explained to the that ERCP was needed and patient agreed with the plan. Constitutional: no complaints Eyes: no complaints ENT: no complaints Respiratory: no complaints Cardiovascular: no complaints Gastrointestinal: flatus, nausea, pain (epigastric), No blood, No diarrhea, No vomiting Genitourinary: no complaints Musculoskeletal: no complaints Skin: no complaints Neurologic: no complaints Endocrine: no complaints Lymphatic: no complaints Psychological: nl mood/affect, no complaints Immunologic: no complaints Past Medical History Medical History: diabetes, hypertension Past Surgical History Past Surgical Hx: no surgical history Social History Alcohol Use: none Smoking Status: Never smoker Drug Use: none Exam/Review of Systems Vital Signs Vitals Vital Signs Date Time Temp Pulse Resp B/P Pulse Ox O2 Delivery O2 Flow Rate FiO2 03/01/17 10:00 61 153/68 03/01/17 07:57 98.3 16 97 03/01/17 06:00 Room Air Intake and Output 02/28/17 02/28/17 03/01/17 15:00 23:00 07:00 Intake Total 100 ml 400 ml 1550 ml Balance 100 ml 400 ml 1550 ml Exam Constitutional: alert, oriented, well developed Psych: nl mood/affect, no complaints Head: normocephalic Eyes: PERRL, nl conjunctiva, nl lids, nl sclera ENMT: nl external ears & nose, nl nasal mucosa & septum Neck: non-tender, supple Respiratory: clear to auscultation, normal air movement Cardiovascular: nl pulses, regular rate and rhythm Gastrointestinal: bowel sounds, distended, nl liver, spleen, non-tender, soft, No tender Genitourinary - Female: nl external genitalia Musculoskeletal: nl extremities to inspection Extremities: normal pulses Neurological: nl mental status, nl speech, nl strength Skin: nl turgor, No rash or lesions Lymph: nl lymph nodes Results Result Diagram: 03/01/17 0507 03/01/17 0507 Results 24 hrs Laboratory Tests Test 02/28/17 14:50 02/28/17 15:48 02/28/17 20:06 02/28/17 23:46 Vitamin D 1,25-Dihydroxy 24.9 L Free Thyroxine 2.30 Bedside Glucose 131 119 149 Test 03/01/17 04:01 03/01/17 05:07 03/01/17 07:43 03/01/17 11:38 Bedside Glucose 161 150 140 White Blood Count 5.0 # Red Blood Count 4.27 Hemoglobin 11.6 L Hematocrit 37.3 Mean Corpuscular Volume 87.4 Mean Corpuscular Hemoglobin 27.2 L Mean Corpuscular Hemoglobin Concent 31.1 L Red Cell Distribution Width 14.5 Platelet Count 101 L Mean Platelet Volume 14.4 H Neutrophils % 54.5 Lymphocytes % 30.5 Monocytes % 9.0 Eosinophils % 4.2 Basophils % 1.2 Nucleated Red Blood Cells % 0.0 Neutrophils # 2.7 Lymphocytes # 1.5 Monocytes # 0.5 Eosinophils # 0.2 Basophils # 0.1 Nucleated Red Blood Cells # 0.0 Sodium Level 139 Potassium Level 4.0 Chloride Level 109 Carbon Dioxide Level 24 Anion Gap 10 # Blood Urea Nitrogen 10 Creatinine 0.71 Glucose Level 186 Calcium Level 8.4 Phosphorus Level 4.0 Magnesium Level 1.9 Total Bilirubin 2.0 H Direct Bilirubin 1.00 #H Indirect Bilirubin 1.0 Aspartate Amino Transf (AST/SGOT) 170 H Alanine Aminotransferase (ALT/SGPT) 334 H Alkaline Phosphatase 170 H Total Protein 6.3 # Albumin 3.2 L Globulin 3.10 Albumin/Globulin Ratio 1.03 Triglycerides Level 116 Cholesterol Level 184 LDL Cholesterol, Calculated 111 HDL Cholesterol 50 Cholesterol/HDL Ratio 3.6 Hepatitis B Surface Antigen NEGATIVE Hepatitis B Core Total Antibody NEGATIVE Hepatitis C Antibody NEGATIVE Medications Medications Current Medications Sodium Chloride (NS) 1,000 ml @ 100 mls/hr Q10H IV Last administered on 13:00; Admin Dose 100 MLS/HR; Start 02/28/17 at 11:45 Ondansetron HCl (Zofran Inj) 4 mg Q6H PRN IV NAUSEA AND/OR VOMITING; Start 02/28 at 12:00 Morphine Sulfate (morphine) 2 mg Q4H PRN IV SEVERE PAIN LEVEL 7-10; Start at 12:00 Magnesium Hydroxide (Milk Of Mag) 30 ml DAILY PRN PO CONSTIPATION; Start at 12:00 Bisacodyl (Dulcolax) 5 mg DAILY PRN PO CONSTIPATION Last administered on 11:44; Admin Dose 5 MG; Start 02/28/17 at 12:00 Famotidine (Pepcid Iv) 20 mg Q12 IV Last administered on 03/01/17 08:07; Admin Dose 20 MG; Start 02/28/17 at 21:00 Hydralazine HCl 10 mg 10 mg Q6H PRN IV SBP>160; Start 02/28/17 at 12:00 Piperacillin Sod/ Tazobactam Sod (Zosyn 3.375gm/ 100 ml (Pmx)) 100 ml @ 200 mls /hr Q8 IVPB Last administered on 03/01/17 13:00; Admin Dose 200 MLS/HR; Start 02/28/17 at 14:00 Insulin Aspart (Novolog Insulin Pen) NOVOLOG *MILD* ALGORITHM Q4H SC Last administered on 03/01/17 08:09; Admin Dose 1 UNIT; Start 02/28/17 at 12:00 Insulin Glargine (Lantus) 12 unit DAILY@20 SC ; Start 02/28/17 at 20:00 Amiodarone HCl (Cordarone) 200 mg DAILY PO Last administered on 03/01/17 08:07 ; Admin Dose 200 MG; Start 03/01/17 at 09:00 Aspirin (Halfprin) 81 mg DAILY PO Last administered on 03/01/17 08:07; Admin Dose 81 MG; Start 03/01/17 at 09:00 Losartan Potassium (Cozaar) 50 mg DAILY PO Last administered on 03/01/17 08:07 ; Admin Dose 50 MG; Start 03/01/17 at 09:00 Miscellaneous Information 1 ea NOTE XX ; Start 02/28/17 at 12:30 Glucose (Glutose) 15 gm Q15M PRN PO DECREASED GLUCOSE; Start 02/28/17 at 12:30 Glucose (Glutose) 22.5 gm Q15M PRN PO DECREASED GLUCOSE; Start 02/28/17 at 12:30 Dextrose (D50w Syringe) 25 ml Q15M PRN IV DECREASED GLUCOSE; Start 02/28/17 at 12:30 Dextrose (D50w Syringe) 50 ml Q15M PRN IV DECREASED GLUCOSE; Start 02/28/17 at 12:30 Glucagon (Glucagen) 1 mg Q15M PRN IM DECREASED GLUCOSE; Start 02/28/17 at 12:30 Glucose (Glutose) 15 gm Q15M PRN BUCCAL DECREASED GLUCOSE; Start 02/28/17 at 12: 30 Diphenhydramine HCl (Benadryl) 25 mg Q4 PRN PO ITCHING; Start 02/28/17 at 23:30 Diphenhydramine HCl (Benadryl) 50 mg HS PRN PO ITCHING; Start 02/28/17 at 23:30 ABDULLAHI FRANCO MD Mar 01, 2017 13:38
[2017-03-01] MEDS ORDERED: INDOMETHACIN 50 MG SUPP PR ONE (14:00)
[2017-03-01 19:30] VITALS: BP 178/71; RESP 18
[2017-03-01] MEDS: morphine 2 MG INJ IV PRN (19:49)
[2017-03-01 21:55] VITALS: BP 192/78; PULSE 72; RESP 20
[2017-03-01] MEDS: hydrALAzine 20 MG INJ IV PRN (22:11)
[2017-03-01 22:51] VITALS: BP 134/60; PULSE 78; RESP 18
[2017-03-02] VITALS (18 sets, daily range): BP systolic 118–184; BP diastolic 56–86; PULSE 58–79; RESP 16–25
[2017-03-02] MEDS: ONDANSETRON 4 MG INJ IV PRN ×2 (00:49→16:52)
[2017-03-02] MEDS: morphine 2 MG INJ IV PRN (00:49)
[2017-03-02] MEDS: SOD CHLORIDE 0.9% 1,000 ML IV SCH ×3 (03:20→23:31)
[2017-03-02] MEDS: INSULIN ASPART [NOVOLOG] 3 ML PEN SC SCH ×6 (04:00→20:00)
[2017-03-02 05:02] LABS: ADD SCAN DIFF NO
[2017-03-02 05:15] LABS: BASOPHILS % 0.6 % (0.0-2.0); EOSINOPHILS # 0.2 10^3/ul (0.0-0.5); EOSINOPHILS % 2.6 % (0.0-7.0); HEMATOCRIT 38.2 % (37.0-47.0); LYMPHOCYTES # 1.7 10^3/ul (0.8-2.9); LYMPHOCYTES % 26.4 % (15.0-51.0); MEAN CORPUSCULAR HEMOGLOBIN 27.5 pg (29.0-33.0); MEAN CORPUSCULAR HGB CONC 31.4 g/dl (32.0-37.0); MEAN CORPUSCULAR VOLUME 87.4 fl (82.0-101.0); MONOCYTE # 0.5 10^3/ul (0.3-0.9); MONOCYTES % 8.3 % (0.0-11.0); NEUTROPHILS % 61.6 % (39.0-77.0); PLATELET COUNT 112 10^3/UL (140-415); RED BLOOD COUNT 4.37 10^6/ul (4.20-5.40); RED CELL DISTRIBUTION WIDTH 14.7 % (11.5-14.5); WHITE BLOOD COUNT 6.5 10^3/ul (4.8-10.8)
[2017-03-02] MEDS: PIPER-TAZO 3.375 GM IV (PMX) 100 ML IVPB SCH ×3 (05:17→18:06)
[2017-03-02 05:35] LABS: POTASSIUM 3.8 mmol/L (3.5-5.1)
[2017-03-02 05:38] LABS: CALCIUM 8.6 mg/dl (8.4-10.2); CREATININE 0.72 mg/dl (0.44-1.00)
[2017-03-02] MEDS ORDERED: CEFAZOLIN 1 GM INJ ONE (07:00)
[2017-03-02] MEDS ORDERED: SEVOFLURANE 15 MIN ONE (07:00)
[2017-03-02] MEDS: ASPIRIN (EC) 81 MG TAB PO SCH (08:26)
[2017-03-02] MEDS: AMIODARONE 200 MG TAB PO SCH (08:27)
[2017-03-02] MEDS: FAMOTIDINE 20 MG INJ IV SCH ×2 (08:27→20:52)
[2017-03-02] MEDS: LOSARTAN 50 MG TAB PO SCH (08:27)
--- NOTE | 2017-03-02 10:22 | RADRPT ---
Vent Rate: 56 bpm RR Interval: 0 msec MA Interval: 162 msec QRS Duration: 94 msec QT Interval: 484 msec QTC Interval: 467 msec P-R-T [place]: 52 - 22 - 34 degrees Sinus bradycardia with premature supraventricular complexes Prolonged QT Abnormal ECG Electronically Signed By: Benton Ruvalcaba [id number]
--- NOTE | 2017-03-02 10:29 | PN ---
Date/Time of Note Date/Time of Note DATE: 03/02/17 TIME: 10:27 Assessment/Plan VTE Prophylaxis VTE Prophylaxis Intervention: SCD's Lines/Catheters IV C[facility]ter Type (from [facility] Peripheral IV Urinary Cath still in place: No Assessment/Plan Chief Complaint/Hosp Course Assessment and plan 1. Abdominal pain secondary to cholelithiasis. Additionally patient did have MRCP that did show some possible sludging antennae stones in CBD. Plan for ERCP per operating room technician. Plan for laparoscopic cholecystectomy status post ERCP. 2. Transaminitis and hyperbilirubinemia likely secondary to #1. Inspector Eyeglass Frames following. Plan for ERCP 3. Essential hypertension. Continue on antihypertensives and adjust as needed. 4. Type 2 diabetes. Continue insulin regimen for now. Of note A1c noted at 7.1 5. Thrombocytopenia. No active bleeding at this time. We'll monitor 6. History of cardiac arrhythmia. Continue on amiodarone for now Disposition and plan: Plan for ERCP. Plan for upper scopic cholecystectomy status post ERCP. We'll follow-up Discussed plan of care with Dr. Vo Problems: Subjective 24 Hr Interval Summary Free Text/Dictation No reported abdominal pain at this time. Family at bedside Exam/Review of Systems Vital Signs Vitals Vital Signs Date Time Temp Pulse Resp B/P Pulse Ox O2 Delivery O2 Flow Rate FiO2 03/02/17 07:09 98.1 76 18 169/70 95 03/01/17 21:55 Room Air Intake and Output 03/01/17 03/01/17 03/02/17 14:59 22:59 06:59 Intake Total 650 ml 160 ml 1300 ml Balance 650 ml 160 ml 1300 ml Exam General: Morbidly obese. No apparent distress Eyes: pupils equal round, Anicteric sclera Neck: Supple nontender, no JVD Cardiac: Regular rate Pulmonary: No adventitious lung sounds GI: No tenderness on palpation Extremities: No edema bilateral lower extremities Skin: Clean dry and intact Neurologic: Alert to person place and time and situation Results Result Diagram: 03/02/17 0450 03/02/17 0450 Results 24 hrs Laboratory Tests Test 03/01/17 11:38 03/01/17 16:16 03/01/17 20:00 03/02/17 00:40 Bedside Glucose 140 132 130 134 Test 03/02/17 04:04 03/02/17 04:50 03/02/17 07:27 Bedside Glucose 128 121 White Blood Count 6.5 # Red Blood Count 4.37 Hemoglobin 12.0 Hematocrit 38.2 Mean Corpuscular Volume 87.4 Mean Corpuscular Hemoglobin 27.5 L Mean Corpuscular Hemoglobin Concent 31.4 L Red Cell Distribution Width 14.7 H Platelet Count 112 L Mean Platelet Volume 14.0 H Neutrophils % 61.6 Lymphocytes % 26.4 Monocytes % 8.3 Eosinophils % 2.6 Basophils % 0.6 Nucleated Red Blood Cells % 0.0 Neutrophils # 4.0 Lymphocytes # 1.7 Monocytes # 0.5 Eosinophils # 0.2 Basophils # 0.0 Nucleated Red Blood Cells # 0.0 Sodium Level 140 Potassium Level 3.8 Chloride Level 105 Carbon Dioxide Level 23 Anion Gap 16 Blood Urea Nitrogen 12 Creatinine 0.72 Glucose Level 146 # Calcium Level 8.6 Medications Medications Current Medications Sodium Chloride (NS) 1,000 ml @ 100 mls/hr Q10H IV Last administered on 03:20; Admin Dose 100 MLS/HR; Start 02/28/17 at 11:45 Ondansetron HCl (Zofran Inj) 4 mg Q6H PRN IV NAUSEA AND/OR VOMITING Last administered on 03/02/17 00:49; Admin Dose 4 MG; Start 02/28/17 at 12:00 Morphine Sulfate (morphine) 2 mg Q4H PRN IV SEVERE PAIN LEVEL 7-10 Last administered on 03/02/17 00:49; Admin Dose 2 MG; Start 02/28/17 at 12:00 Magnesium Hydroxide (Milk Of Mag) 30 ml DAILY PRN PO CONSTIPATION; Start at 12:00 Bisacodyl (Dulcolax) 5 mg DAILY PRN PO CONSTIPATION Last administered on 11:44; Admin Dose 5 MG; Start 02/28/17 at 12:00 Famotidine 20 mg 20 mg Q12 IV Last administered on 03/02/17 08:27; Admin Dose 20 MG; Start 02/28/17 at 21:00 Piperacillin Sod/ Tazobactam Sod (Zosyn 3.375gm/ 100 ml (Pmx)) 100 ml @ 200 mls /hr Q8 IVPB Last administered on 03/02/17 05:17; Admin Dose 200 MLS/HR; Start 02/28/17 at 14:00 Insulin Aspart (Novolog Insulin Pen) NOVOLOG *MILD* ALGORITHM Q4H SC Last administered on 03/01/17 08:09; Admin Dose 1 UNIT; Start 02/28/17 at 12:00 Insulin Glargine (Lantus) 12 unit DAILY@20 SC Last administered on 03/01/17 20 :05; Admin Dose 12 UNIT; Start 02/28/17 at 20:00 Amiodarone HCl (Cordarone) 200 mg DAILY PO Last administered on 03/02/17 08:27 ; Admin Dose 200 MG; Start 03/01/17 at 09:00 Aspirin (Halfprin) 81 mg DAILY PO Last administered on 03/01/17 08:07; Admin Dose 81 MG; Start 03/01/17 at 09:00 Losartan Potassium (Cozaar) 50 mg DAILY PO Last administered on 03/02/17 08:27 ; Admin Dose 50 MG; Start 03/01/17 at 09:00 Miscellaneous Information 1 ea NOTE XX ; Start 02/28/17 at 12:30 Glucose (Glutose) 15 gm Q15M PRN PO DECREASED GLUCOSE; Start 02/28/17 at 12:30 Glucose (Glutose) 22.5 gm Q15M PRN PO DECREASED GLUCOSE; Start 02/28/17 at 12:30 Dextrose (D50w Syringe) 25 ml Q15M PRN IV DECREASED GLUCOSE; Start 02/28/17 at 12:30 Dextrose (D50w Syringe) 50 ml Q15M PRN IV DECREASED GLUCOSE; Start 02/28/17 at 12:30 Glucagon (Glucagen) 1 mg Q15M PRN IM DECREASED GLUCOSE; Start 02/28/17 at 12:30 Glucose (Glutose) 15 gm Q15M PRN BUCCAL DECREASED GLUCOSE; Start 02/28/17 at 12: 30 Diphenhydramine HCl (Benadryl) 25 mg Q4 PRN PO ITCHING; Start 02/28/17 at 23:30 Diphenhydramine HCl (Benadryl) 50 mg HS PRN PO ITCHING; Start 02/28/17 at 23:30 Hydralazine HCl (Apresoline) 10 mg Q4H PRN IV SBP >160 Last administered on 22:11; Admin Dose 10 MG; Start 03/01/17 at 22:30 TARA ECHEVERRIA Mar 02, 2017 10:29
--- NOTE | 2017-03-02 11:19 | PN ---
DATE: 03/02/2017 The patient is clinically stable. She is awaiting ERCP today. Abdominal examination is benign. PLAN: We will arrange for laparoscopic cholecystectomy tomorrow. I have discussed the procedure, o utcomes, indications, alternatives and risks in detail with the patient and , who have an exc ellent understanding of her situation and agree to the proposed plan of therapy as outlined. Dictated By: STUART DUMONT/SHRUTI Conf#: [id number] DID#: [id number]
[2017-03-02] MEDS ORDERED: INDOMETHACIN 50 MG SUPP PR ONE (15:12)
[2017-03-02] MEDS ORDERED: IOHEXOL 300MG/ML 30 ML BTL ONE (15:14)
[2017-03-02] MEDS ORDERED: METOCLOPRAMIDE 10 MG INJ ONE (15:18)
[2017-03-02] MEDS ORDERED: FENTAnyl 50 MCG/ML VIAL ONE (15:18)
[2017-03-02] MEDS ORDERED: PROPOFOL 20 ML ONE (15:18)
[2017-03-02] MEDS ORDERED: SUCCINYLCHOLINE CHLORIDE 100 MG/5 ML SYG IV ONE (15:18)
[2017-03-02] MEDS ORDERED: MIDAZOLAM 1 MG/ML 2 ML INJ ONE (15:19)
--- NOTE | 2017-03-02 15:31 | QN ---
Documentation Comment No changes ABDULLAHI FRANCO MD Mar 02, 2017 15:31
[2017-03-02] MEDS ORDERED: EPHEDrine SULFATE 50 MG/5 ML SYG ONE (16:17)
--- NOTE | 2017-03-02 16:58 | RADRPT ---
PROCEDURE: Intraoperative imaging for ERCP with fluoroscopy. CLINICAL INDICATION: Right upper quadrant pain. Intraoperative. TECHNIQUE: 8 images of the right upper quadrant of the abdomen were obtained in the operating room with an image intensifier. No radiologist was in attendance. 1 and 11.6 seconds of fluoroscopy ti me was used. COMPARISON: MRCP dated 02/28/2017. FINDINGS: Images demonstrate the endoscope in position. Contrast was injected into the common bile duct. Con trast enters the cystic duct and gallbladder. Multiple filling defects are present in the gallbladd er consistent with stones. The common bile duct is dilated. A balloon sweep was made. IMPRESSION: 1. ERCP as described above. RPTAT: QQ .Juan Pedraza MD, MD Date Time Electronically viewed and signed by .Juan Pedraza MD, on 03/02/2017 16:57 .R/
[2017-03-02] MEDS ORDERED: METOCLOPRAMIDE 10 MG INJ IV PRN (17:00)
[2017-03-02] MEDS ORDERED: HYDROmorphONE (0.2 MG/ML) 10ML SYG IV PRN ×3 (17:00)
[2017-03-02] MEDS ORDERED: ONDANSETRON 4 MG INJ IV PRN (17:00)
[2017-03-02] MEDS ORDERED: hydrALAzine 20 MG INJ IV PRN (17:00)
[2017-03-02] MEDS ORDERED: LABETALOL HCL 20MG INJ IV PRN (17:00)
--- NOTE | 2017-03-02 18:26 | GILP ---
DATE OF PROCEDURE: PROCEDURE: Endoscopic retrograde cholangiopancreatography with endoscopic retrograde sphincterotomy and stone removal. SURGEON: Abdullahi Chao MD PREMEDICATION: General anesthesia. INSTRUMENT USED: Olympus side-viewing panendoscope. TECHNIQUE: After informed consent, with the patient/relatives understanding the procedure, its indic ations, potential risks and complications, including but not limited to: allergic reaction, bleeding , perforation or infection, and after all pertinent questions were answered to the patients satisfac tion, the patient/relatives signed witnessed informed consent. Following this, premedication was ad ministered slowly IV push under careful cardiovascular and respiratory monitoring with pulse oximetr y, automatic blood pressure and patient monitor. Once the sedative effect was achieved the patient was p lace in the prone position in the radiology special procedures suite; the side viewing panendoscope was introduced and advanced under visual control. Careful examination of the upper gastrointestinal tract, both on insertion as well as withdrawal of the instrument disclosed the following findings: ESOPHAGUS: The mucosa of the entire esophagus appears within normal limits. There is no evidence of esophagitis, varices, neoplasm or stricture. No hiatal hernia identified. STOMACH: Upon entrance to the stomach air was insufflated, the gastric diane distended normally. Th e mucosa of the fundus, body and antrum of the stomach was carefully examined both head-on and on re troflexion, and shows no abnormalities. There is no evidence of gastritis, ulcers or neoplasm. PYLORUS: The pylorus appears patent and within normal limits, with no evidence of gastric outlet ob struction. DUODENUM: The duodenal mucosa was carefully examined in the duodenal bulb as well as the second por tion of the duodenum and appears unremarkable with no evidence of duodenitis, ulcer or neoplasm. AMPULLA OF VATER: The ampulla was identified, was cannulated with moderate difficulty, opacifying the biliary tree. The biliary tree appears dilated to 12 to 13 mm and several filling defects are n oted in the distal common bile duct. A standard sphincterotomy was performed without complications and as we did this, 2 stones came out spontaneously. We then introduced a 9 to 12 mm balloon and sw ept the biliary tree extracting at least 5 more stones. Balloon cholangiogram was then obtained and appears unremarkable. IMPRESSION: 1. Dilated common bile duct 12 to 13 mm. 2. Post-sphincterotomy. 3. Post-stone removal (more than 5 stones). PLAN: The patient will be closely observed. Laparoscopic cholecystectomy as soon as possible is re commended. Dictated By: ABDULLAHI CHAO MS/SHRUTI Conf#: [id number] DID#: [id number] CC: ABDULLAHI CHAO;*EndCC*
[2017-03-02] MEDS: hydrALAzine 20 MG INJ IV PRN (20:52)
[2017-03-02] MEDS: INSULIN GLARGINE [LANtus] 3 ML PEN SC SCH (20:52)
[2017-03-03] VITALS (16 sets, daily range): BP systolic 111–189; BP diastolic 41–73; PULSE 66–97; RESP 19–37
[2017-03-03] MEDS: INSULIN ASPART [NOVOLOG] 3 ML PEN SC SCH ×6 (04:00→20:00)
[2017-03-03 05:05] LABS: ADD SCAN DIFF NO
[2017-03-03] MEDS: PIPER-TAZO 3.375 GM IV (PMX) 100 ML IVPB SCH ×3 (05:09→21:02)
[2017-03-03 05:33] LABS: CALCIUM 8.2 mg/dl (8.4-10.2); CREATININE 0.68 mg/dl (0.44-1.00); POTASSIUM 3.8 mmol/L (3.5-5.1)
[2017-03-03 05:58] LABS: ABNORMAL IP MESSAGE 1; BASOPHILS % 0.5 % (0.0-2.0); EOSINOPHILS # 0.2 10^3/ul (0.0-0.5); EOSINOPHILS % 2.5 % (0.0-7.0); HEMOGLOBIN 11.7 g/dl (12.0-16.0); LYMPHOCYTES # 1.7 10^3/ul (0.8-2.9); LYMPHOCYTES % 28.4 % (15.0-51.0); MEAN CORPUSCULAR HEMOGLOBIN 27.8 pg (29.0-33.0); MEAN CORPUSCULAR HGB CONC 31.6 g/dl (32.0-37.0); MEAN CORPUSCULAR VOLUME 87.9 fl (82.0-101.0); MONOCYTE # 0.6 10^3/ul (0.3-0.9); MONOCYTES % 10.1 % (0.0-11.0); NEUTROPHIL # 3.5 10^3/ul (1.6-7.5); NEUTROPHILS % 57.8 % (39.0-77.0); PLATELET COUNT 112 10^3/UL (140-415); RED BLOOD COUNT 4.21 10^6/ul (4.20-5.40); RED CELL DISTRIBUTION WIDTH 14.8 % (11.5-14.5); WHITE BLOOD COUNT 6.1 10^3/ul (4.8-10.8)
[2017-03-03] MEDS: FAMOTIDINE 20 MG INJ IV SCH ×2 (08:54→21:02)
[2017-03-03] MEDS: AMIODARONE 200 MG TAB PO SCH (08:55)
[2017-03-03] MEDS: ASPIRIN (EC) 81 MG TAB PO SCH (09:00)
[2017-03-03] MEDS: SOD CHLORIDE 0.9% 1,000 ML IV SCH ×2 (09:45→18:37)
[2017-03-03] MEDS: LOSARTAN 50 MG TAB PO SCH (09:56)
--- NOTE | 2017-03-03 10:44 | PN ---
Date/Time of Note Date/Time of Note DATE: 03/03/17 TIME: 10:34 Assessment/Plan VTE Prophylaxis VTE Prophylaxis Intervention: SCD's Lines/Catheters [facility] Per[facility] IV Urinary Cath still in place: No Assessment/Plan Chief Complaint/Hosp Course Assessment and plan 1. Abdominal pain secondary to cholelithiasis. Additionally patient did have MRCP that did show some possible sludging antennae stones in CBD. Patient status post ERCP with stone removal. Surgeon following. Tentative plan for laparoscopic cholecystectomy. We'll follow-up 2. Transaminitis and hyperbilirubinemia likely secondary to #1. We'll monitor level. Status post ERCP. 3. Essential hypertension. Continue on antihypertensives and adjust as needed. Stable at present 4. Type 2 diabetes. Continue insulin regimen for now. Of note A1c noted at 7.1. stable 5. Thrombocytopenia. No active bleeding at this time. We'll monitor 6. History of cardiac arrhythmia. Continue on amiodarone. stable Disposition and plan: Patient status post ERCP on 03/02/2017 with stone removal. Plan for cholecystectomy. Continue inpatient monitoring Discussed plan of care with Dr. Vo Problems: Subjective 24 Hr Interval Summary Free Text/Dictation No abdominal pain or nausea or vomiting reported at this time Exam/Review of Systems Vital Signs Vitals Vital Signs Date Time Temp Pulse Resp B/P Pulse Ox O2 Delivery O2 Flow Rate FiO2 03/03/17 08:31 97.9 68 20 113/53 97 03/02/17 17:45 Room Air 03/02/17 16:31 8.0 Intake and Output 03/02/17 03/02/17 03/03/17 14:59 22:59 06:59 Intake Total 730 ml 1120 ml Balance 730 ml 1120 ml Exam General: Morbidly obese. No apparent distress, no abd pain at this time Eyes: pupils equal round Neck: no jvd seen Cardiac: Regular rate Pulmonary: no wheezing/rhonchi GI: No tenderness on palpation during examination, bowel sounds remain active Extremities: No edema bilateral lower extremities Skin: Clean dry and intact Neurologic: Alert to person place and time and situation Results Result Diagram: 03/03/17 0448 03/03/17 0448 Results 24 hrs Laboratory Tests Test 03/02/17 11:40 03/02/17 17:51 03/02/17 20:50 03/02/17 23:38 Bedside Glucose 112 176 128 138 Test 03/03/17 04:42 03/03/17 04:48 03/03/17 07:53 Bedside Glucose 100 131 White Blood Count 6.1 Red Blood Count 4.21 Hemoglobin 11.7 L Hematocrit 37.0 Mean Corpuscular Volume 87.9 Mean Corpuscular Hemoglobin 27.8 L Mean Corpuscular Hemoglobin Concent 31.6 L Red Cell Distribution Width 14.8 H Platelet Count 112 L Mean Platelet Volume Neutrophils % 57.8 Lymphocytes % 28.4 Monocytes % 10.1 Eosinophils % 2.5 Basophils % 0.5 Nucleated Red Blood Cells % 0.0 Neutrophils # 3.5 Lymphocytes # 1.7 Monocytes # 0.6 Eosinophils # 0.2 Basophils # 0.0 Nucleated Red Blood Cells # 0.0 Sodium Level 140 Potassium Level 3.8 Chloride Level 112 H Carbon Dioxide Level 22 Anion Gap 10 # Blood Urea Nitrogen 17 Creatinine 0.68 Glucose Level 109 Calcium Level 8.2 L Medications Medications Current Medications Sodium Chloride (NS) 1,000 ml @ 100 mls/hr Q10H IV Last administered on 23:31; Admin Dose 100 MLS/HR; Start 02/28/17 at 11:45 Ondansetron HCl (Zofran Inj) 4 mg Q6H PRN IV NAUSEA AND/OR VOMITING Last administered on 03/02/17 16:52; Admin Dose 4 MG; Start 02/28/17 at 12:00 Morphine Sulfate (morphine) 2 mg Q4H PRN IV SEVERE PAIN LEVEL 7-10 Last administered on 03/02/17 00:49; Admin Dose 2 MG; Start 02/28/17 at 12:00 Magnesium Hydroxide (Milk Of Mag) 30 ml DAILY PRN PO CONSTIPATION; Start at 12:00 Bisacodyl (Dulcolax) 5 mg DAILY PRN PO CONSTIPATION Last administered on 11:44; Admin Dose 5 MG; Start 02/28/17 at 12:00 Famotidine (Pepcid Iv) 20 mg Q12 IV Last administered on 03/03/17 08:54; Admin Dose 20 MG; Start 02/28/17 at 21:00 Insulin Aspart (Novolog Insulin Pen) NOVOLOG *MILD* ALGORITHM Q4H SC Last administered on 03/01/17 08:09; Admin Dose 1 UNIT; Start 02/28/17 at 12:00 Insulin Glargine (Lantus) 12 unit DAILY@20 SC Last administered on 03/02/17 20 :52; Admin Dose 12 UNIT; Start 02/28/17 at 20:00 Amiodarone HCl (Cordarone) 200 mg DAILY PO Last administered on 03/03/17 08:55 ; Admin Dose 200 MG; Start 03/01/17 at 09:00 Aspirin (Halfprin) 81 mg DAILY PO Last administered on 03/01/17 08:07; Admin Dose 81 MG; Start 03/01/17 at 09:00 Losartan Potassium (Cozaar) 50 mg DAILY PO Last administered on 03/03/17 09:56 ; Admin Dose 50 MG; Start 03/01/17 at 09:00 Miscellaneous Information 1 ea NOTE XX ; Start 02/28/17 at 12:30 Glucose (Glutose) 15 gm Q15M PRN PO DECREASED GLUCOSE; Start 02/28/17 at 12:30 Glucose (Glutose) 22.5 gm Q15M PRN PO DECREASED GLUCOSE; Start 02/28/17 at 12:30 Dextrose (D50w Syringe) 25 ml Q15M PRN IV DECREASED GLUCOSE; Start 02/28/17 at 12:30 Dextrose (D50w Syringe) 50 ml Q15M PRN IV DECREASED GLUCOSE; Start 02/28/17 at 12:30 Glucagon (Glucagen) 1 mg Q15M PRN IM DECREASED GLUCOSE; Start 02/28/17 at 12:30 Glucose (Glutose) 15 gm Q15M PRN BUCCAL DECREASED GLUCOSE; Start 02/28/17 at 12: 30 Diphenhydramine HCl (Benadryl) 25 mg Q4 PRN PO ITCHING; Start 02/28/17 at 23:30 Diphenhydramine HCl (Benadryl) 50 mg HS PRN PO ITCHING; Start 02/28/17 at 23:30 Hydralazine HCl 10 mg 10 mg Q4H PRN IV SBP >160 Last administered on 03/02/17 20:52; Admin Dose 10 MG; Start 03/01/17 at 22:30 Piperacillin Sod/ Tazobactam Sod (Zosyn 3.375gm/ 100 ml (Pmx)) 100 ml @ 200 mls /hr Q8 IVPB Last administered on 03/03/17t 05:09; Admin Dose 200 MLS/HR; Start 03/02/17 at 18:00 TARA ECHEVERRIA Mar 03, 2017 10:44
[2017-03-03] MEDS: morphine 2 MG INJ IV PRN (10:52)
--- NOTE | 2017-03-03 11:36 | PN ---
Date/Time of Note Date/Time of Note DATE: 03/03/17 TIME: 11:29 Assessment/Plan VTE Prophylaxis VTE Prophylaxis Intervention: SCD's Lines/Catheters [facility] Peripheral IV Urinary Cath still in place: No Assessment/Plan Assessment/Plan * Abdominal pain resolved * Cholelithiasis/Choledocholithiasis * ERCP 03/02/2017 * 1. Dilated common bile duct 12 to 13 mm. 2. Post-sphincterotomy. 3. Post-stone removal (more than 5 stones). 02/28/2017 MRCP Cholelithiasis without gallbladder wall thickening/inflammation. Small layering filling defect identified in the distal common bile duct, suggesting sludge and/or tiny stones. Consider ERCP 02/28/2017 CT Abdomen/Pelvis. Moderate periumbilical hernia containing fat and focal loop of small bowel. There is no bowel obstruction. Scattered colonic diverticuli without evidence of diverticulitis. Cholelithiasis. Vascular calcifications reflective of atherosclerosis. Transaminitis secondary to choledocholithiasis Morbid obesity Hypertension Diabetes mellitus Plan * continue present management * scheduled for cholecystectomy Subjective 24 Hr Interval Summary Free Text/Dictation * Course reviewed with Nurse * patient seen and examined * no abdominal pain,or fever * ERCP 03/02/2017 * 1. Dilated common bile duct 12 to 13 mm. 2. Post-sphincterotomy. 3. Post-stone removal (more than 5 stones Exam/Review of Systems Vital Signs Vitals Vital Signs Date Time Temp Pulse Resp B/P Pulse Ox O2 Delivery O2 Flow Rate FiO2 03/03/17 08:31 97.9 68 20 113/53 97 03/02/17 17:45 Room Air 03/02/17 16:31 8.0 Intake and Output 03/02/17 03/02/17 03/03/17 15:00 23:00 07:00 Intake Total 730 ml 1120 ml Balance 730 ml 1120 ml Exam Constitutional: alert, oriented Respiratory: clear to auscultation, normal air movement Cardiovascular: nl pulses, regular rate and rhythm Gastrointestinal: bowel sounds, non-tender, soft, No rebound or guarding Musculoskeletal: nl extremities to inspection Results Result Diagram: 03/03/17 0448 03/03/17 0448 Results 24 hrs Laboratory Tests Test 03/02/17 11:40 03/02/17 17:51 03/02/17 20:50 03/02/17 23:38 Bedside Glucose 112 176 128 138 Test 03/03/17 04:42 03/03/17 04:48 03/03/17 07:53 Bedside Glucose 100 131 White Blood Count 6.1 Red Blood Count 4.21 Hemoglobin 11.7 L Hematocrit 37.0 Mean Corpuscular Volume 87.9 Mean Corpuscular Hemoglobin 27.8 L Mean Corpuscular Hemoglobin Concent 31.6 L Red Cell Distribution Width 14.8 H Platelet Count 112 L Mean Platelet Volume Neutrophils % 57.8 Lymphocytes % 28.4 Monocytes % 10.1 Eosinophils % 2.5 Basophils % 0.5 Nucleated Red Blood Cells % 0.0 Neutrophils # 3.5 Lymphocytes # 1.7 Monocytes # 0.6 Eosinophils # 0.2 Basophils # 0.0 Nucleated Red Blood Cells # 0.0 Sodium Level 140 Potassium Level 3.8 Chloride Level 112 H Carbon Dioxide Level 22 Anion Gap 10 # Blood Urea Nitrogen 17 Creatinine 0.68 Glucose Level 109 Calcium Level 8.2 L Medications Medications Current Medications Sodium Chloride (NS) 1,000 ml @ 100 mls/hr Q10H IV Last administered on 23:31; Admin Dose 100 MLS/HR; Start 02/28/17 at 11:45 Ondansetron HCl (Zofran Inj) 4 mg Q6H PRN IV NAUSEA AND/OR VOMITING Last administered on 03/02/17 16:52; Admin Dose 4 MG; Start 02/28/17 at 12:00 Morphine Sulfate (morphine) 2 mg Q4H PRN IV SEVERE PAIN LEVEL 7-10 Last administered on 03/03/17 10:52; Admin Dose 2 MG; Start 02/28/17 at 12:00 Magnesium Hydroxide (Milk Of Mag) 30 ml DAILY PRN PO CONSTIPATION; Start at 12:00 Bisacodyl (Dulcolax) 5 mg DAILY PRN PO CONSTIPATION Last administered on 11:44; Admin Dose 5 MG; Start 02/28/17 at 12:00 Famotidine (Pepcid Iv) 20 mg Q12 IV Last administered on 03/03/17 08:54; Admin Dose 20 MG; Start 02/28/17 at 21:00 Insulin Aspart (Novolog Insulin Pen) NOVOLOG *MILD* ALGORITHM Q4H SC Last administered on 03/01/17 08:09; Admin Dose 1 UNIT; Start 02/28/17 at 12:00 Insulin Glargine (Lantus) 12 unit DAILY@20 SC Last administered on 03/02/17 20 :52; Admin Dose 12 UNIT; Start 02/28/17 at 20:00 Amiodarone HCl (Cordarone) 200 mg DAILY PO Last administered on 03/03/17 08:55 ; Admin Dose 200 MG; Start 03/01/17 at 09:00 Aspirin (Halfprin) 81 mg DAILY PO Last administered on 03/01/17 08:07; Admin Dose 81 MG; Start 03/01/17 at 09:00 Losartan Potassium (Cozaar) 50 mg DAILY PO Last administered on 03/03/17 09:56 ; Admin Dose 50 MG; Start 03/01/17 at 09:00 Miscellaneous Information 1 ea NOTE XX ; Start 02/28/17 at 12:30 Glucose (Glutose) 15 gm Q15M PRN PO DECREASED GLUCOSE; Start 02/28/17 at 12:30 Glucose (Glutose) 22.5 gm Q15M PRN PO DECREASED GLUCOSE; Start 02/28/17 at 12:30 Dextrose (D50w Syringe) 25 ml Q15M PRN IV DECREASED GLUCOSE; Start 02/28/17 at 12:30 Dextrose (D50w Syringe) 50 ml Q15M PRN IV DECREASED GLUCOSE; Start 02/28/17 at 12:30 Glucagon (Glucagen) 1 mg Q15M PRN IM DECREASED GLUCOSE; Start 02/28/17 at 12:30 Glucose (Glutose) 15 gm Q15M PRN BUCCAL DECREASED GLUCOSE; Start 02/28/17 at 12: 30 Diphenhydramine HCl (Benadryl) 25 mg Q4 PRN PO ITCHING; Start 02/28/17 at 23:30 Diphenhydramine HCl (Benadryl) 50 mg HS PRN PO ITCHING; Start 02/28/17 at 23:30 Hydralazine HCl 10 mg 10 mg Q4H PRN IV SBP >160 Last administered on 03/02/17 20:52; Admin Dose 10 MG; Start 03/01/17 at 22:30 Piperacillin Sod/ Tazobactam Sod (Zosyn 3.375gm/ 100 ml (Pmx)) 100 ml @ 200 mls /hr Q8 IVPB Last administered on 03/03/17t 05:09; Admin Dose 200 MLS/HR; Start 03/02/17 at 18:00 ABDULLAHI FRANCO MD Mar 03, 2017 11:36
[2017-03-03] MEDS ORDERED: FENTAnyl 50 MCG/ML VIAL ONE (14:39)
[2017-03-03] MEDS ORDERED: MIDAZOLAM 1 MG/ML 2 ML INJ ONE (14:39)
[2017-03-03] MEDS ORDERED: PROPOFOL 20 ML ONE (14:39)
[2017-03-03] MEDS ORDERED: ROPIVACAINE 0.2% 20 ML VIAL ONE (14:39)
[2017-03-03] MEDS ORDERED: ROCURONIUM 50 MG INJ ONE (14:39)
[2017-03-03] MEDS ORDERED: BUPIVACAINE 0.25% (MPF) 30 ML INJ ONE (14:55)
--- NOTE | 2017-03-03 15:04 | HPN ---
Date/Time of Note Date/Time of Note DATE: 03/03/17 TIME: 15:04 Interval H&P Admission Note Pt. seen H&P reviewed: Systems changes noted below Patient had ERCP yesterday STUART MUNROE MD Mar 03, 2017 15:04
[2017-03-03] MEDS ORDERED: PHENYLephrine (100 MCG/ML) 5ML SYG ONE (15:25)
[2017-03-03] MEDS ORDERED: PIPERACIL/TAZO 3.375GM/100ML BAG ONE (15:30)
[2017-03-03] MEDS ORDERED: DESFLURANE 15 MIN ONE (15:30)
[2017-03-03] MEDS ORDERED: SUCCINYLCHOLINE CHLORIDE 100 MG/5 ML SYG IV ONE (15:30)
[2017-03-03] MEDS ORDERED: KETOROLAC 30 MG INJ ONE (15:39)
[2017-03-03] MEDS ORDERED: ONDANSETRON 4 MG INJ ONE (15:39)
[2017-03-03] MEDS ORDERED: DEXAMETHASONE 4 MG/ML 1 ML INJ ONE (15:39)
[2017-03-03] MEDS ORDERED: METOCLOPRAMIDE 10 MG INJ ONE (15:39)
[2017-03-03] MEDS ORDERED: GLYCOPYRROLATE 0.4 MG INJ ONE (15:40)
[2017-03-03] MEDS ORDERED: NEOSTIGMINE 3 MG/3 ML SYRINGE ONE (15:40)
[2017-03-03] MEDS ORDERED: MEPERIDINE 25 MG INJ IV PRN (16:00)
[2017-03-03] MEDS ORDERED: EPHEDrine SULFATE 50 MG/5 ML SYG IV PRN (16:00)
[2017-03-03] MEDS ORDERED: METOCLOPRAMIDE 10 MG INJ IV PRN (16:00)
[2017-03-03] MEDS ORDERED: HYDROmorphONE (0.2 MG/ML) 10ML SYG IV PRN ×3 (16:00)
[2017-03-03] MEDS ORDERED: hydrALAzine 20 MG INJ IV PRN (16:00)
[2017-03-03] MEDS ORDERED: LABETALOL HCL 20MG INJ IV PRN (16:00)
[2017-03-03] MEDS ORDERED: ONDANSETRON 4 MG INJ IV PRN ×2 (16:00→16:30)
[2017-03-03] MEDS ORDERED: morphine (1 MG/ML) 10ML SYRINGE IV PRN ×2 (16:00)
[2017-03-03] MEDS ORDERED: DIPHENHYDRAMINE 50 MG INJ IV PRN (16:00)
[2017-03-03] MEDS ORDERED: OXYCODONE/ACETAMINOPHEN (5/325) TAB PO PRN (16:30)
[2017-03-03] MEDS ORDERED: morphine 2 MG INJ IV PRN (16:30)
[2017-03-03] MEDS: morphine (1 MG/ML) 10ML SYRINGE IV PRN ×2 (16:32→16:43)
--- NOTE | 2017-03-03 17:16 | OPR ---
DATE OF OPERATION: 03/03/2017 PREOPERATIVE DIAGNOSIS: Acute cholecystitis. OPERATION PERFORMED: 1. Laparoscopic cholecystectomy. 2. Placement of drain. SURGEON: Stuart Guan MD ANESTHESIA: General. ANESTHESIOLOGIST: Dr Fraire OPERATIVE REPORT: The patient is a 61-year-old female who was admitted with cholecystitis and abnormal LFTs. Yesterday she underwent an ERCP with successful extraction of 5 common duct stones. She is now here for completion cholecystectomy. After satisfactory general anesthesia was achieved, the abdomen was prepped and draped in the usual fashion. The abdomen was insufflated through a supraumbilical Veress needle with carbon dioxide to 15 mmHg pressure. The Veress needle was removed and the umbilical incision extended to 5 mm, through which a 5 mm trocar was placed. A 5 mm 0-degree lens was placed. Laparoscopy showed a thickened gallbladder. Under direct visualization, an 11 mm epigastric trocar was placed as well as two 5 mm right lateral abdominal trocars. The dome of the gallbladder was grasped and retracted superiorly. Larry's pouch was retracted inferiorly after omental adhesions were taken down. The hepatoduodenal ligament was quite easily dissected. The cystic duct was then triply hemoclipped and divided high at the junction of the gallbladder and cystic duct. The cystic artery was triply hemoclipped and divided. Peritoneal attachments to the gallbladder were divided over clips. The gallbladder was then dissected from below using electrocautery dissection and placed into an EndoCatch, removed via the epigastric route. There was oozing from the liver bed which was ultimately entirely controlled with electrocautery and then placement of a Surgicel patch which was cauterized to the liver bed. This achieved total hemostasis. Because of the marked amount of inflammation, it was elected to place a drain. A #19 round Jose drain was placed, draining the subhepatic space and gallbladder fossa, and exited through the lateral-most puncture site. The drain was secured with 2-0 nylon. The abdomen was then desufflated prior to closure of the 11 mm fascial defect with a #1 Vicryl placed with the assistance of a Narayan-Jayden device. The abdomen was then desufflated, and the trocars were removed. The fascial suture was tied down. The skin punctures were infiltrated with 30 mL of 0.25% plain Marcaine. The skin punctures were closed with lizzie. OPERATIVE BLOOD LOSS: Approximately 100 to 150 mL SPONGE AND NEEDLE COUNTS: Reported as correct x2. The patient tolerated the procedure without incident or complication. Dictated By: STUART DUMONT/SHRUTI Conf#: [id number] DID#: [id number] MTDD
[2017-03-03] MEDS: OXYCODONE/ACETAMINOPHEN (5/325) TAB PO PRN (18:38)
[2017-03-03] MEDS: INSULIN GLARGINE [LANtus] 3 ML PEN SC SCH (22:39)
[2017-03-04] VITALS (9 sets, daily range): BP systolic 107–148; BP diastolic 60–67; PULSE 62–66; RESP 16–21
[2017-03-04] MEDS: INSULIN ASPART [NOVOLOG] 3 ML PEN SC SCH ×4 (04:00→11:27)
[2017-03-04] MEDS: OXYCODONE/ACETAMINOPHEN (5/325) TAB PO PRN ×2 (04:42→10:01)
[2017-03-04] MEDS: SOD CHLORIDE 0.9% 1,000 ML IV SCH (04:46)
[2017-03-04] MEDS: PIPER-TAZO 3.375 GM IV (PMX) 100 ML IVPB SCH ×2 (05:11→13:26)
[2017-03-04 07:23] LABS: ADD SCAN DIFF NO
[2017-03-04 07:26] LABS: BASOPHILS % 0.2 % (0.0-2.0); HEMATOCRIT 37.1 % (37.0-47.0); HEMOGLOBIN 11.3 g/dl (12.0-16.0); LYMPHOCYTES # 0.9 10^3/ul (0.8-2.9); LYMPHOCYTES % 10.8 % (15.0-51.0); MEAN CORPUSCULAR HEMOGLOBIN 27.6 pg (29.0-33.0); MEAN CORPUSCULAR HGB CONC 30.5 g/dl (32.0-37.0); MEAN CORPUSCULAR VOLUME 90.5 fl (82.0-101.0); MEAN PLATELET VOLUME 14.2 fl (7.4-10.4); MONOCYTE # 0.4 10^3/ul (0.3-0.9); MONOCYTES % 4.9 % (0.0-11.0); NEUTROPHIL # 7.1 10^3/ul (1.6-7.5); NEUTROPHILS % 83.4 % (39.0-77.0); PLATELET COUNT 100 10^3/UL (140-415); RED CELL DISTRIBUTION WIDTH 15.3 % (11.5-14.5); WHITE BLOOD COUNT 8.5 10^3/ul (4.8-10.8)
[2017-03-04 07:49] LABS: ALBUMIN 2.8 g/dl (3.3-4.9); POTASSIUM 4.2 mmol/L (3.5-5.1)
[2017-03-04 07:51] LABS: BILIRUBIN,INDIRECT 0.5 mg/dl (0-1.1); BILIRUBIN,TOTAL 0.5 mg/dl (0.2-1.3); CREATININE 0.59 mg/dl (0.44-1.00)
[2017-03-04 07:52] LABS: ALBUMIN/GLOBULIN RATIO 0.9; TOTAL PROTEIN 5.9 g/dl (6.1-8.1)
[2017-03-04 07:53] LABS: CALCIUM 7.9 mg/dl (8.4-10.2)
[2017-03-04] MEDS: ASPIRIN (EC) 81 MG TAB PO SCH ×2 (08:34→08:36)
[2017-03-04] MEDS: LOSARTAN 50 MG TAB PO SCH (08:35)
[2017-03-04] MEDS: FAMOTIDINE 20 MG INJ IV SCH (08:35)
[2017-03-04] MEDS: AMIODARONE 200 MG TAB PO SCH (08:35)
--- NOTE | 2017-03-04 09:29 | OPR ---
DATE OF OPERATION: 03/04/2017 Postop day #1. The patient overall feels well. Her vital signs are stable. She has been afebrile throughout. Her abdominal examination is benign and the YOANNA drainage is minimal serosanguineous. LABORATORY DATA: The patient's hematocrit is 37, with a white count of 8,500. Bilirubin is down to 0.5, alkaline phosphatase is down to 122. IMPRESSION: Excellent postoperative recovery. PLAN: I have removed the patient's Maurice-Estrella drain and have left the patient a prescription for Tylenol No. 3 and Keflex. The patient is cleared from a surgical standpoint for discharge home toramon taylor. I will see the patient in 1 weeks' time for staple removal. Dictated By: STUART DUMONT/SHRUTI Conf#: [id number] DID#: [id number]
[2017-03-04] MEDS ORDERED: SENN-53 PO (11:53)
--- NOTE | 2017-03-04 11:54 | PDOCDIS ---
Discharge Instructions DIAGNOSIS Discharge Diagnosis: 1. symptomatic cholelithiasis 2. choledocholithiasis 3. obesity CONDITION Patient Condition: Stable HOME CARE INSTRUCTIONS: Diet Instructions: Reduced CalorieSpecial Diet: carb controlled diet FOLLOW UP/APPOINTMENTS Appointments 1. Follow up with Dr. Klaus Guan in one week 2. Follow up with Dr. Noelle Chao in 1-2 weeks 3. Follow up with your primary care provider in one week. Obtain lab draw for: liver profile TARA ECHEVERRIA Mar 04, 2017 11:53
[2017-03-04] MEDS ORDERED: Oxycodone/Acetamin (5/325) PO (13:26)
[2017-03-04] MEDS ORDERED: CEPH500C PO (13:26)
--- NOTE | 2017-03-04 15:15 | PN ---
Date/Time of Note Date/Time of Note DATE: 03/04/17 TIME: 15:11 Assessment/Plan VTE Prophylaxis VTE Prophylaxis Intervention: SCD's Lines/Catheters IV Catheter Type (from [facility]): Peripheral IV Urinary Cath still in place: No Assessment/Plan Assessment/Plan Abdominal pain resolved * Choledocholithiasis resolved * ERCP 03/02/2017 * 1. Dilated common bile duct 12 to 13 mm. 2. Post-sphincterotomy. 3. Post-stone removal (more than 5 stones). 02/28/2017 MRCP Cholelithiasis without gallbladder wall thickening/inflammation. Small layering filling defect identified in the distal common bile duct, suggesting sludge and/or tiny stones. Consider ERCP 02/28/2017 CT Abdomen/Pelvis. Moderate periumbilical hernia containing fat and focal loop of small bowel. There is no bowel obstruction. Scattered colonic diverticuli without evidence of diverticulitis. Cholelithiasis. Vascular calcifications reflective of atherosclerosis. Cholelithiasis (cholecystectomy 03/03/2017) Morbid obesity Hypertension Diabetes mellitus Plan * Stable for outpatient management Subjective 24 Hr Interval Summary Free Text/Dictation * course reviewed with Nurse * patient seen and examined * denies abdominal pain nor fever Exam/Review of Systems Vital Signs Vitals Vital Signs Date Time Temp Pulse Resp B/P Pulse Ox O2 Delivery O2 Flow Rate FiO2 03/04/17 12:11 66 03/04/17 12:00 97.9 16 133/63 93 03/04/17 03:11 2.0 03/03/17 20:00 Nasal Cannula Intake and Output 03/03/17 03/03/17 03/04/17 15:00 23:00 07:00 Intake Total 775 ml 1600 ml Output Total 50 ml 30 ml Balance 725 ml 1570 ml Exam Constitutional: alert Respiratory: clear to auscultation, normal air movement Cardiovascular: nl pulses, regular rate and rhythm Gastrointestinal: nl liver, spleen, non-tender, soft Extremities: normal pulses Results Result Diagram: 03/04/17 0642 03/04/17 0642 Results 24 hrs Laboratory Tests Test 03/03/17 16:34 03/03/17 20:59 03/03/17 22:22 03/04/17 00:35 Bedside Glucose 136 136 170 149 Test 03/04/17 04:45 03/04/17 06:42 03/04/17 08:09 03/04/17 11:25 Bedside Glucose 126 127 223 H White Blood Count 8.5 # Red Blood Count 4.10 L Hemoglobin 11.3 L Hematocrit 37.1 Mean Corpuscular Volume 90.5 Mean Corpuscular Hemoglobin 27.6 L Mean Corpuscular Hemoglobin Concent 30.5 L Red Cell Distribution Width 15.3 H Platelet Count 100 L Mean Platelet Volume 14.2 H Neutrophils % 83.4 H Lymphocytes % 10.8 L Monocytes % 4.9 Eosinophils % 0.0 Basophils % 0.2 Nucleated Red Blood Cells % 0.0 Neutrophils # 7.1 Lymphocytes # 0.9 Monocytes # 0.4 Eosinophils # 0.0 Basophils # 0.0 Nucleated Red Blood Cells # 0.0 Sodium Level 138 Potassium Level 4.2 Chloride Level 108 Carbon Dioxide Level 21 Anion Gap 13 Blood Urea Nitrogen 15 Creatinine 0.59 Glucose Level 162 Calcium Level 7.9 L Total Bilirubin 0.5 Direct Bilirubin 0.00 Indirect Bilirubin 0.5 Aspartate Amino Transf (AST/SGOT) 162 H Alanine Aminotransferase (ALT/SGPT) 238 H Alkaline Phosphatase 122 H Total Protein 5.9 L Albumin 2.8 L Globulin 3.10 Albumin/Globulin Ratio 0.90 Medications Medications Current Medications Sodium Chloride (NS) 1,000 ml @ 100 mls/hr Q10H IV Last administered on 04:46; Admin Dose 100 MLS/HR; Start 02/28/17 at 11:45 Morphine Sulfate (morphine) 2 mg Q4H PRN IV SEVERE PAIN LEVEL 7-10 Last administered on 03/03/17 10:52; Admin Dose 2 MG; Start 02/28/17 at 12:00 Magnesium Hydroxide (Milk Of Mag) 30 ml DAILY PRN PO CONSTIPATION; Start at 12:00 Bisacodyl (Dulcolax) 5 mg DAILY PRN PO CONSTIPATION Last administered on 11:44; Admin Dose 5 MG; Start 02/28/17 at 12:00 Famotidine (Pepcid Iv) 20 mg Q12 IV Last administered on 03/04/17 08:35; Admin Dose 20 MG; Start 02/28/17 at 21:00 Insulin Aspart (Novolog Insulin Pen) NOVOLOG *MILD* ALGORITHM Q4H SC Last administered on 03/04/17 11:27; Admin Dose 3 UNIT; Start 02/28/17 at 12:00 Insulin Glargine (Lantus) 12 unit DAILY@20 SC Last administered on 03/03/17 22 :39; Admin Dose 12 UNIT; Start 02/28/17 at 20:00 Amiodarone HCl (Cordarone) 200 mg DAILY PO Last administered on 03/04/17 08:35 ; Admin Dose 200 MG; Start 03/01/17 at 09:00 Aspirin (Halfprin) 81 mg DAILY PO Last administered on 03/01/17 08:07; Admin Dose 81 MG; Start 03/01/17 at 09:00 Losartan Potassium (Cozaar) 50 mg DAILY PO Last administered on 03/04/17 08:35 ; Admin Dose 50 MG; Start 03/01/17 at 09:00 Miscellaneous Information 1 ea NOTE XX ; Start 02/28/17 at 12:30 Glucose (Glutose) 15 gm Q15M PRN PO DECREASED GLUCOSE; Start 02/28/17 at 12:30 Glucose (Glutose) 22.5 gm Q15M PRN PO DECREASED GLUCOSE; Start 02/28/17 at 12:30 Dextrose (D50w Syringe) 25 ml Q15M PRN IV DECREASED GLUCOSE; Start 02/28/17 at 12:30 Dextrose (D50w Syringe) 50 ml Q15M PRN IV DECREASED GLUCOSE; Start 02/28/17 at 12:30 Glucagon (Glucagen) 1 mg Q15M PRN IM DECREASED GLUCOSE; Start 02/28/17 at 12:30 Glucose (Glutose) 15 gm Q15M PRN BUCCAL DECREASED GLUCOSE; Start 02/28/17 at 12: 30 Diphenhydramine HCl (Benadryl) 25 mg Q4 PRN PO ITCHING; Start 02/28/17 at 23:30 Diphenhydramine HCl (Benadryl) 50 mg HS PRN PO ITCHING; Start 02/28/17 at 23:30 Hydralazine HCl 10 mg 10 mg Q4H PRN IV SBP >160 Last administered on 03/02/17 20:52; Admin Dose 10 MG; Start 03/01/17 at 22:30 Piperacillin Sod/ Tazobactam Sod (Zosyn 3.375gm/ 100 ml (Pmx)) 100 ml @ 200 mls /hr Q8 IVPB Last administered on 03/04/17 13:26; Admin Dose 200 MLS/HR; Start 03/02/17 at 18:00 Oxycodone/ Acetaminophen (Percocet (5/ 325)) 1 tab Q4H PRN PO MILD PAIN (1-3); Start 03/03/17 at 16:30 Oxycodone/ Acetaminophen (Percocet (5/ 325)) 2 tab Q4H PRN PO MODERATE PAIN (4- 6) Last administered on 03/04/17 10:01; Admin Dose 2 TAB; Start 03/03/17 at 16: 30 Morphine Sulfate (morphine) 2 mg ONCE PRN IV SEVERE PAIN LEVEL 7-10; Start 03/03 at 16:30 Ondansetron HCl (Zofran Inj) 4 mg Q6H PRN IV NAUSEA; Start 03/03/17 at 16:30 ABDULLAHI FRANCO MD Mar 04, 2017 15:15
--- NOTE | 2017-03-07 17:40 | DS ---
Date/Time of Note Date/Time of Note DATE: 03/07/17 TIME: 17:34 Discharge Summary Admission/Discharge Info Admit Date/Time Feb 28, 2017 at 11:30 Discharge Date/Time Mar 04, 2017 at 17:35 Final Diagnosis 1. Abdominal pain secondary to cholelithiasis. 2. Transaminitis and hyperbilirubinemia likely secondary to #1. 3. Essential hypertension. 4. Type 2 diabetes. 5. Thrombocytopenia. 6. History of cardiac arrhythmia. Patient Condition: Stable Consults 1. Dr. Klaus Guan 2. Dr. Noelle Chao Hospital Course This is a 61-year-old female with history of essential hypertension, type 2 diabetes, morbid obesity, came [facility] due to reports of abdominal pain. According to the patient and her pain started in the epigastric area radiating to her back. She denies any nausea vomiting. She also did verbalize that her last bowel movement was roughly 2 days prior to admission. She stated she tried using [id number] Zantac with no improvement in her pain. Subsequently when she went to [facility] for [facility] evaluation. Upon examination she had a gallbladder ultrasound that did show her to have numerous gallstones with mild gallbladder wall thickening. Further delineation with CT scan of the abdomen and pelvis did show her to have cholelithiasis with moderate periumbilical hernia containing fat and focal loop of small bowel with no evidence of bowel obstruction. Patient was seen by physical therapy assistant instructor as well as by surgeon. She did have an MRCP that did show some possible sludging with stones in the CBD. She did have ERCP and did have good response. Afterwards she did have also cholecystectomy by recommendation of the surgeon. She did tolerate procedures well and did have good response to these treatments. Her transaminitis did slowly resolve. During the course of stay she did improve. She was continued on antihypertensives for hypertension and insulin for diabetes. She did have A1c noted at 7.1. Patient was also resumed on her amiodarone for her history of cardiac arrhythmia. During the course of stay she did improve. The plan of care was discussed with the patient and patient did verbalize her understanding. On the day of discharge patient was in stable condition Discussed plan of care with Dr. Vo Discharge process time x 40 minutes Home Meds Active Scripts Cephalexin* (Cephalexin*) 500 Mg Capsule, 500 MG PO Q8, #21 CAP Prov:REGIDOR,TARA 03/04/17 [Oxycodone/Acetamin (5/325)] 1 TAB TAB No Conflict Check, 1 TAB PO Q4H Y for MILD PAIN (1-3), #30 Prov:BRIAN ECHEVERRIANELL 03/04/17 Sennosides* (Senna Lax*) 8.6 Mg Tablet, 1 TAB PO BID, #30 TAB Prov:JACKITARA 03/04/17 Clonidine Hcl* (Clonidine Hcl*) 0.1 Mg Tab, 0.2 MG PO BID, #20 Prov:CRISTOPHER DSOUZA MD 10/11/15 Reported Medications Losartan Potassium* (Losartan Potassium*) 50 Mg Tablet, 50 MG PO DAILY, TAB 10/11/15 Aspirin* (Aspirin* EC) 81 Mg Tablet.dr, 81 MG PO DAILY, TAB 10/11/15 Amiodarone Hcl* (Amiodarone Hcl*) 200 Mg Tablet, 200 MG PO DAILY, TAB 10/11/15 Metformin Hcl* (Metformin Hcl*) 500 Mg Tablet, 500 MG PO BID, TAB 10/11/15 Follow-up Plan CONDITION Patient Condition: Stable HOME CARE INSTRUCTIONS: Diet Instructions: Reduced CalorieSpecial Diet: carb controlled diet FOLLOW UP/APPOINTMENTS Appointments 1. Follow up with Dr. Klaus Guan in one week 2. Follow up with Dr. Noelle Chao in 1-2 weeks 3. Follow up with your primary care provider in one week. Obtain lab draw for: liver profile JACKIBRIANTARA Mar 07, 2017 17:40
== END 2017-03-04 17:35 | disposition home or self-care (01) | DRG 418 ==
LOC: E/R 06:58 → PP2 11:30 → TEL 03-03 17:55 → UNDODISIN 03-04 17:05
PROVIDERS: ADMIT Family Medicine; ATTEND Family Medicine
PROC: 0FC98ZZ Extirpation of Matter from Common Bile Duct, Via Natural or Artificial Opening Endoscopic (ICD-10-PCS; principal; 2017-03-02 15:00)
PROC: 0FT44ZZ Resection of Gallbladder, Percutaneous Endoscopic Approach (ICD-10-PCS; 2017-03-03)
DX: K80.70 Calculus of gallbladder and bile duct without cholecystitis without obstruction (principal); Z68.43 Body mass index [BMI] 50.0-59.9, adult; D69.6 Thrombocytopenia, unspecified; I10 Essential (primary) hypertension; E66.01 Morbid (severe) obesity due to excess calories; E11.9 Type 2 diabetes mellitus without complications; E80.6 Other disorders of bilirubin metabolism
CPT/HCPCS: 36415; 71010; 74176; 74181; 74330; 76705; 80048; 80053; 80061; 81003; 82652; 82962; 83036; 83690; 83735; 84100; 84439; 84443; 85025; 85610; 85730; 86704; 86709; 86803; 86850; 86900; 86901; 87340; 88304; 93005; 96374; 96375; 96376; J0330; J0360; J0690; J0696; J1100; J1170; J1200; J1815; J1885; J2175; J2250; J2270; J2370; J2405; J2543; J2710; J2765; J2795; J3010; J7030; Q9967

== ENCOUNTER 2017-03-04 19:17 | Emergency (ER) | payer MEDICAID ==
[~2017-03-04] VITALS: Ht 152.4 cm; Wt 126.5 kg
[~2017-03-04 19:17] MED LIST changes: +CEPH500C PO; +Oxycodone/Acetamin (5/325) PO; +SENN-53 PO
[2017-03-04 19:25] VITALS: Ht 152.4 cm; Wt 126.5 kg
--- NOTE | 2017-03-04 19:47 | ERD ---
ER Documentation Chief Complaint Date/Time DATE: 03/04/17 TIME: 19:44 Chief Complaint just got dc'd at 430 pm, had cholecystectomy, c/o body rash HPI This 61-year-old female presents with a rash on her abdomen today. She was just released from the hospital this morning status post cholecystectomy. She denies any fevers, vomiting, shortness of the chest pain. The rash has resolved since waiting to be seen here in the ED. The rash was isolated to her abdomen had a lumpy red appearance. Is currently resolved. ROS All systems reviewed and are negative except as per history of present illness. Medications Home Meds Active Scripts Cephalexin* (Cephalexin*) 500 Mg Capsule, 500 MG PO Q8, #21 CAP Prov:TARA ECHEVERRIA 03/04/17 [Oxycodone/Acetamin (5/325)] 1 TAB TAB No Conflict Check, 1 TAB PO Q4H Y for MILD PAIN (1-3), #30 Prov:TARA ECHEVERRIA 03/04/17 Sennosides* (Senna Lax*) 8.6 Mg Tablet, 1 TAB PO BID, #30 TAB Prov:TARA ECHEVERRIA 03/04/17 Clonidine Hcl* (Clonidine Hcl*) 0.1 Mg Tab, 0.2 MG PO BID, #20 Prov:CRISTOPHER DSOUZA MD 10/11/15 Reported Medications Losartan Potassium* (Losartan Potassium*) 50 Mg Tablet, 50 MG PO DAILY, TAB 10/11/15 Aspirin* (Aspirin* EC) 81 Mg Tablet.dr, 81 MG PO DAILY, TAB 10/11/15 Amiodarone Hcl* (Amiodarone Hcl*) 200 Mg Tablet, 200 MG PO DAILY, TAB 10/11/15 Metformin Hcl* (Metformin Hcl*) 500 Mg Tablet, 500 MG PO BID, TAB 10/11/15 Allergies Allergies: Coded Allergies: No Known Allergy (Verified , 03/04/17) PMhx/Soc Medical and Surgical Hx: pt denies Surgical Hx History of Surgery: Yes (S/P lap denny) Anesthesia Reaction: No Hx Neurological Disorder: No Hx Respiratory Disorders: No Hx Cardiac Disorders: Yes (HTN) Hx Psychiatric Problems: Yes (ANXIETY) Hx Miscellaneous Medical Probl: No Hx Alcohol Use: No Hx Substance Use: No Hx Tobacco Use: No Physical Exam Vitals Vital Signs Date Time Temp Pulse Resp B/P Pulse Ox O2 Delivery O2 Flow Rate FiO2 03/04/17 19:25 99.3 81 20 148/66 96 Physical Exam Const: [] Alert, morbidly obese, [id number] per Head: Atraumatic Eyes: Normal Conjunctiva ENT: Normal External Ears, Nose and Mouth. Neck: Full range of motion..~ No meningismus. Resp: Clear to auscultation bilaterally Cardio: Regular rate and rhythm, no murmurs Abd: Soft, non tender, non distended. Normal bowel sounds Skin: No petechiae or rashes. Normal healing port sites from cholecystectomy. Back: No midline or flank tenderness Ext: No cyanosis, or edema Neur: Awake and alert Psych: Normal Mood and Affect Procedures/MDM This patient presents with by history what sounds like an urticarial rash which is currently resolved. She will the only medication she is taking at home is Tylenol with codeine. I discussion with the son that this may be the best clue is the cause of the rash. Recommending take Benadryl for recurrent rash and observe for potential recurrence of rash after the Tylenol with codeine. She is otherwise displays no signs or symptoms to suggest acute complications from her cholecystectomy. She should return for fevers, vomiting, shortness breath, new worsening symptoms with primary care doctor this week and surgeon as scheduled. The patient was stable with no new complaints during the ER course. Clinically, there is no current evidence to suggest meningitis, sepsis, acute abdomen, pneumonia, acute coronary syndrome, pulmonary embolism, or any other emergent condition appearing to require further evaluation or hospitalization. The patient should certainly return for any new or worsening symptoms per the aftercare instructions. They should otherwise follow-up with her primary care doctor for reevaluation this week. Departure Diagnosis: Primary Impression: Rash Condition: Stable Patient Instructions: Hives Additional Instructions: Recheck for persistent rash, shortness of breath, fevers, vomiting, new worsening symptoms. Observe for possible allergy to codeine. Take Benadryl 25 mg every 4-6 hours for rash. CASANDRA MORRISSEY MD Mar 04, 2017 19:46
== END 2017-03-04 19:55 | disposition home or self-care (01) ==
LOC: FTE 19:17
DX: R21 Rash and other nonspecific skin eruption (principal); I10 Essential (primary) hypertension; E11.9 Type 2 diabetes mellitus without complications; Z79.84 Long term (current) use of oral hypoglycemic drugs; Z79.82 Long term (current) use of aspirin
CPT/HCPCS: 99284

== ENCOUNTER 2018-01-05 10:15 | Emergency (ER) | END 2018-01-05 13:36 | disposition home or self-care (01) ==